=== PATIENT | female | born 1960 | race Hispanic/Latino ===

== ENCOUNTER 2019-05-24 18:21 | Emergency (ER) | payer OTHER ==
--- OUTSIDE RECORDS SUMMARY | 2019-05-24 18:24 | XMS REPORT ---
:1960 [facility] [address] [place] [address] Care Team Providers Name Role Phone Unavailable Unavailable Unavailable Payers Payer Name Policy Type Policy Number Effective Date Expiration Date Problems This patient has no known problems. Allergies, Adverse Reactions, Alerts Allergy Allergy Status Severity Reaction(s) Onset Inactive Treating Comments Name Type Date Date Clinician No Known DA Active U 2018-12 Allergies -09 00:00:0 0 Medications This patient has no known medications. Results Test Description Test Time Test Comments Text Results Atomic Results Result Comments BASIC METABOLIC PANEL 2018-12-24 08:57:00 Test Item Value Reference Range Comments SODIUM (test code=NA) 140 mmol/L 134-147 POTASSIUM (test code=K) 3.8 mmol/L 3.4-5.0 CHLORIDE (test code=CL) 107 mmol/L 100-108 CARBON DIOXIDE (test code=CO2) 26 mmol/L 21-32 ANION GAP (test code=GAP) 7.0 GAP calc 4.0-15.0 GLUCOSE (test code=GLU) 107 MG/DL 70-110 BLOOD UREA NITROGEN (test code=BUN) 12 MG/DL 7-18 GLOMERULAR FILTRATION RATE (test code=GFR) >=60 max estimate estGFR >60 CREATININE (test code=CREAT) 0.5 MG/DL 0.6-1.0 CALCIUM (test code=CA) 8.5 MG/DL 8.5-10.1 CBC W/AUTO [id number] 08:28:00 Test Item Value Reference Range Comments WHITE BLOOD CELL (test code=WBC) 5.0 K/mm3 3.5-11.0 RED BLOOD CELL (test code=RBC) 4.55 M/mm3 4.70-6.10 HEMOGLOBIN (test code=HGB) 13.1 G/DL 10.4-14.9 HEMATOCRIT (test code=HCT) 40.0 % 31.5-44.1 MEAN CELL VOLUME (test code=MCV) 87.9 Fl 84.5-98.6 MEAN CELL HGB (test code=MCH) 28.8 pg 27.0-34.2 MEAN CELL HGB CONCETRATION (test code=MCHC) 32.8 G/DL 31.5-34.0 RED CELL DISTRIBUTION WIDTH (test code=RDW) 14.0 SD 11.5-14.5 PLATELET COUNT (test code=PLT) 205.0 K/mm3 150-450 MEAN PLATELET VOLUME (test code=MPV) 9.70 fL 7.0-10.5 NEUTROPHIL % (test code=NT%) 47.8 % 40-76 LYMPHOCYTE % (test code=LY%) 37.9 % 20.5-51.1 MONOCYTE % (test code=MO%) 9.9 % 1.7-9.3 EOSINOPHIL % (test code=EO%) 4.0 % 0.0-6.0 BASOPHIL % (test code=BA%) 0.4 % 0.0-2.0 NEUTROPHIL # (test code=NT#) 2.37 K/mm3 1.8-7.6 LYMPHOCYTE # (test code=LY#) 1.9 K/mm3 0.6-3.2 MONOCYTE # (test code=MO#) 0.5 K/mm3 0.3-1.1 EOSINOPHIL # (test code=EO#) 0.2 K/mm3 0.0-0.4 BASOPHIL # (test code=BA#) 0.0 K/mm3 0.0-0.1 MANUAL DIFF REQUIRED (test code=MDIFF) NO DIFF/SCN CRITERIA - CT CHEST [id number] 15:30:00 Name: CAMILLE LOAIZA [facility] : 1960 Age/S: 58 / F [address] Unit #: [id number] Loc: [place] [address] Phys: Robin Rai MD Acct: [id number] Dis Date: Status : ADM IN PHONE #: [phone] Exam Date: 12/23/2018 1505 FAX #: Reason: PE protocol EXAMS: CPT: [id number] CT CHEST W/CONTRAST 67612 Site ID: [id number] CT angiogram of the chest with pulmonary embolism protocol CLINICAL HISTORY: Palpitations, chest pain COMPARISON STUDY: Chest x-ray of the same day TECHNIQUE: CT angiogram of the chest with IV contrast performed according to department pulmonary embolus protocol. Radiologist performed post-acquisition 3D processing was done at the workstation and reviewed. CT dose lowering technique utilized, with adjustment of MA/kV according to patient size and automated exposure control. FINDINGS: There is no evidence of pulmonary embolism. The thyroid gland and thoracic inlet are normal. The mediastinum is unremarkable, with no suspicious mass. The heart size is normal. The thoracic aorta and great vessels are normal in caliber. No pleural or pericardial effusion. No axillary, mediastinal or hilar lymphadenopathy. The tracheobronchial tree is clear. No pulmonary nodules, mass or consolidation. Bone windows demonstrate no evidence of fracture or malalignment. Limited images of the upper abdomen demonstrate a large hiatal hernia. IMPRESSION: 1. No evidence of acute pulmonary embolus or acute abnormality within the chest. 2. Large hiatal hernia. PAGE 1 Signed Report ( CONTINUED) Name: CAMILLE LOAIZA [facility] : Age/S: 58 / F [address] Unit #: [id number] Loc: [place] [address] Phys: Robin Rai MD Acct: [id number] Dis Date: Status: ADM IN PHONE #: [phone] Exam Date: 12/23/2018 1501 FAX #: Reason: PE protocol EXAMS: CPT: [id number] CT CHEST W/CONTRAST 25879 < Continued> at 1530 Reported and signed by: Suki Looney M.D. CC: Robin Rai MD Technologist: Oswaldo Payne RT(R)(CT) CTDI: DLP: Trnscb Date/Time: 12/23 (1530) t.[email or web address] Orig Print D/T: S: 12/23/2018 ( 9753) PAGE 2 Signed Report- XR CHEST 1 [id number] 15 :25:00 Name: CAMILLE LOAIZA [facility] : 1960 Age/S: 58 / F [address] Unit #: [id number] Loc: [place] [address] Phys: Robin Rai MD Acct: [id number] Dis Date: Status: ADM IN PHONE #: [phone] Exam Date: 12/23/2018 1416 FAX #: Reason: SOB EXAMS: CPT: [id number] XR CHEST 1 V 18974 Fluoro Time: DAP ( Gy m2): Air Kerma (mGy): Site ID: [id number] HISTORY: Shortnessof breath, chest pain FINDINGS: The lungs are clear and normally expanded. The heart and pulmonary vasculature is normal. Osseous structures are unremarkable. Large retrocardiac hiatal hernia is noted. IMPRESSION: Large retrocardiac hiatal hernia. No acute finding. at 1525 Reported and signed by: Suki Looney M.D. CC: Robin Rai MD PAGE 1 Signed Report Name: CAMILLE LOAIZA [facility] : 1960 Age/S: 58 / F [address] Unit #: [id number] Loc: [place] [address] Phys : Robin Rai MD Acct: [id number] Dis Date: Status: ADM IN PHONE #: [phone] Exam Date: 12/23/2018 1415 FAX #: Reason: SOB EXAMS: CPT: [id number] XR CHEST 1 V 27353 Fluoro Time: DAP (Gy m2): Air Kerma (mGy): <Continued&gt ; Technologist: Sonali Tinsley, RT(R)(MR); Roopa Sharma RT(R) Trnscb Date/Time: 12/23/2018 (8768) [email or web address] Orig Print D/T: S : 12/23/2018 (6322) PAGE 2 Signed [id number] 13:56:00 Test Item Value Reference Range Comments TROPONIN-I (test 0.097 NG/ML 0.000-0.045 Negative: </=0.045 Positive: code=TROPI) >/=0.046 Correlation with serial results, other cardiac markers, and clinical findings is necessary to determine the clinical significance of this result. Quantitative results using different methodologies should not be compared to one another as numerical results may varyby method. Completed by Nursing: NOGLYCOSYLATED HEMOGLOBIN [id number] 10:22:00 Test Item Value Reference Range Comments GLYCOSYLATED HEMOGLOBIN (HA1C) (test 6.3 % A1C 4.2-6.3 code=GLYHGB) ESTIMATED AVERAGE GLUCOSE (test code=EAG) 134 MG/DLest CBC W/AUTO [id number] 10:14:00 Test Item Value Reference Range Comments WHITE BLOOD CELL (test 7.8 K/mm3 3.5-11.0 code=WBC) RED BLOOD CELL (test code=RBC) 4.62 M/mm3 4.70-6.10 HEMOGLOBIN (test code=HGB) 13.3 G/DL 10.4-14.9 HEMATOCRIT (test code=HCT) 40.6 % 31.5-44.1 MEAN CELL VOLUME (test 87.9 Fl 84.5-98.6 code=MCV) MEAN CELL HGB (test code=MCH) 28.8 pg 27.0-34.2 MEAN CELL HGB CONCETRATION 32.8 G/DL 31.5-34.0 (test code=MCHC) RED CELL DISTRIBUTION WIDTH 14.2 SD 11.5-14.5 (test code=RDW) PLATELET COUNT (test code=PLT) 209.0 K/mm3 150-450 MEAN PLATELET VOLUME (test 9.90 fL 7.0-10.5 code=MPV) NEUTROPHIL % (test code=NT%) 52.9 % 40-76 LYMPHOCYTE % (test code=LY%) 35.6 % 20.5-51.1 MONOCYTE % (test code=MO%) 9.1 % 1.7-9.3 EOSINOPHIL % (test code=EO%) 2.1 % 0.0-6.0 BASOPHIL % (test code=BA%) 0.3 % 0.0-2.0 NEUTROPHIL # (test code=NT#) 4.12 K/mm3 1.8-7.6 LYMPHOCYTE # (test code=LY#) 2.8 K/mm3 0.6-3.2 MONOCYTE # (test code=MO#) 0.7 K/mm3 0.3-1.1 EOSINOPHIL # (test code=EO#) 0.2 K/mm3 0.0-0.4 BASOPHIL # (test code=BA#) 0.0 K/mm3 0.0-0.1 MANUAL DIFF REQUIRED (test NO DIFF/SCN CRITERIA SLIDE REVIEW CONSISTANT code=MDIFF) WITH AUTO DIFFERENTIAL. RBC [id number] 10:14:00 Test Item Value Reference Range Comments PLATELET ESTIMATE (test ADEQUATE THOUSAND ADEQUATE MANUAL ESTIMATE: 204,000 code=PLTEST) - 255,000 PLATELET MORPHOLOGY (test NORMAL code=PLTMORPH) CBC W/AUTO [id number] 10:13:00 Test Item Value Reference Range Comments WHITE BLOOD CELL (test 7.8 K/mm3 3.5-11.0 code=WBC) RED BLOOD CELL (test code=RBC) 4.62 M/mm3 4.70-6.10 HEMOGLOBIN (test code=HGB) 13.3 G/DL 10.4-14.9 HEMATOCRIT (test code=HCT) 40.6 % 31.5-44.1 MEAN CELL VOLUME (test 87.9 Fl 84.5-98.6 code=MCV) MEAN CELL HGB (test code=MCH) 28.8 pg 27.0-34.2 MEAN CELL HGB CONCETRATION 32.8 G/DL 31.5-34.0 (test code=MCHC) RED CELL DISTRIBUTION WIDTH 14.2 SD 11.5-14.5 (test code=RDW) PLATELET COUNT (test code=PLT) 209.0 K/mm3 150-450 MEAN PLATELET VOLUME (test 9.90 fL 7.0-10.5 code=MPV) NEUTROPHIL % (test code=NT%) 52.9 % 40-76 LYMPHOCYTE % (test code=LY%) 35.6 % 20.5-51.1 MONOCYTE % (test code=MO%) 9.1 % 1.7-9.3 EOSINOPHIL % (test code=EO%) 2.1 % 0.0-6.0 BASOPHIL % (test code=BA%) 0.3 % 0.0-2.0 NEUTROPHIL # (test code=NT#) 4.12 K/mm3 1.8-7.6 LYMPHOCYTE # (test code=LY#) 2.8 K/mm3 0.6-3.2 MONOCYTE # (test code=MO#) 0.7 K/mm3 0.3-1.1 EOSINOPHIL # (test code=EO#) 0.2 K/mm3 0.0-0.4 BASOPHIL # (test code=BA#) 0.0 K/mm3 0.0-0.1 MANUAL DIFF REQUIRED (test NO DIFF/SCN CRITERIA SLIDE REVIEW CONSISTANT code=MDIFF) WITH AUTO DIFFERENTIAL. CBC W/AUTO [id number] 10:13:00 Test Item Value Reference Range Comments WHITE BLOOD CELL (test 7.8 K/mm3 3.5-11.0 code=WBC) RED BLOOD CELL (test code=RBC) 4.62 M/mm3 4.70-6.10 HEMOGLOBIN (test code=HGB) 13.3 G/DL 10.4-14.9 HEMATOCRIT (test code=HCT) 40.6 % 31.5-44.1 MEAN CELL VOLUME (test 87.9 Fl 84.5-98.6 code=MCV) MEAN CELL HGB (test code=MCH) 28.8 pg 27.0-34.2 MEAN CELL HGB CONCETRATION 32.8 G/DL 31.5-34.0 (test code=MCHC) RED CELL DISTRIBUTION WIDTH 14.2 SD 11.5-14.5 (test code=RDW) PLATELET COUNT (test code=PLT) 209.0 K/mm3 150-450 MEAN PLATELET VOLUME (test 9.90 fL 7.0-10.5 code=MPV) NEUTROPHIL % (test code=NT%) 52.9 % 40-76 LYMPHOCYTE % (test code=LY%) 35.6 % 20.5-51.1 MONOCYTE % (test code=MO%) 9.1 % 1.7-9.3 EOSINOPHIL % (test code=EO%) 2.1 % 0.0-6.0 BASOPHIL % (test code=BA%) 0.3 % 0.0-2.0 NEUTROPHIL # (test code=NT#) 4.12 K/mm3 1.8-7.6 LYMPHOCYTE # (test code=LY#) 2.8 K/mm3 0.6-3.2 MONOCYTE # (test code=MO#) 0.7 K/mm3 0.3-1.1 EOSINOPHIL # (test code=EO#) 0.2 K/mm3 0.0-0.4 BASOPHIL # (test code=BA#) 0.0 K/mm3 0.0-0.1 MANUAL DIFF REQUIRED (test NO DIFF/SCN CRITERIA SLIDE REVIEW CONSISTANT code=MDIFF) WITH AUTO DIFFERENTIAL. PROTHROMBIN [id number] 09:32:00 Test Item Value Reference Range Comments PT PATIENT (test code=PTP) 12.9 SECONDS 9.3-12.9 INTERNATIONAL NORMAL RATIO (test code=INR) 1.12 INR Unit 0.8-1.2 [id number] 09:32:00 Test Item Value Reference Range Comments D-DIMER (test code=DDIMER) 1399 ng/mLFEU 215-500 COMPREHENSIVE METABOLIC [id number] 09:31:00 Test Item Value Reference Range Comments SODIUM (test code=NA) 142 mmol/L 134-147 POTASSIUM (test code=K) 4.0 mmol/L 3.4-5.0 CHLORIDE (test code=CL) 109 mmol/L 100-108 CARBON DIOXIDE (test code=CO2) 26 mmol/L 21-32 ANION GAP (test code=GAP) 7.0 GAP calc 4.0-15.0 GLUCOSE (test code=GLU) 111 MG/DL 70-110 BLOOD UREA NITROGEN (test code=BUN) 17 MG/DL 7-18 GLOMERULAR FILTRATION RATE (test >=60 max estimate estGFR >60 code=GFR) CREATININE (test code=CREAT) 0.6 MG/DL 0.6-1.0 TOTAL PROTEIN (test code=PROT) 7.2 G/DL 6.4-8.2 ALBUMIN (test code=ALB) 3.1 G/DL 3.4-5.0 GLOBULIN (test code=GLOB) 4.1 GM/dL ALBUMIN/GLOBULIN RATIO (test 0.8 RATIO 1.2-2.2 code=A/G) CALCIUM (test code=CA) 8.7 MG/DL 8.5-10.1 BILIRUBIN TOTAL (test code=BILT) 0.30 MG/DL 0.2-1.2 SGOT/AST (test code=AST) 76 Unit/L 15-37 SGPT/ALT (test code=ALT) 123 Unit/L 12-78 ALKALINE PHOSPHATASE TOTAL (test 80 Unit/L 45-117 code=ALKP) LIPID PROFILE (CORONARY RISK)2018-12-23 09:31:00 Test Item Value Reference Range Comments TRIGLYCERIDES (test code=TRIG) 127 MG/DL 0-150 CHOLESTEROL (test code=CHOL) 201 MG/DL 133-200 CHOLESTEROL/HDL RATIO (test code=CHOLHDL) 3.59 RATIO >0 HDL CHOLESTEROL (test code=HDL) 56 MG/DL 40-59 NON-HDL CHOLESTEROL (test code=NHDL) 145 mg/dL <130 LIPOPROTEIN LDL (test code=LDL) 129 MG/DL 0-129 LDL/HDL (test code=LDL/HDL) 2.30 Ratio 1.48-3.22 Avg [id number] 09:31:00 Test Item Value Reference Range Comments PHOSPHOROUS (test code=PHOS) 3.7 MG/DL 2.5-4.9 RULE OUT AR [id number] 09:31:00 Test Item Value Reference Range Comments CREATINE KINASE (CK) (test 68 Unit/L 26-192 code=CK) TROPONIN-I (test 0.118 NG/ML 0.000-0.045 Negative: </=0.045 Positive: code=TROPI) >/=0.046 Correlation with serial results, other cardiac markers, and clinical findings is necessary to determine the clinical significance of this result. Quantitative results using different methodologies should not be compared to one another as numerical results may varyby method. [id number] 09:31:00 Test Item Value Reference Range Comments MAGNESIUM (test code=MAG) 1.9 MG/DL 1.8-2.4 THYROID STIMULATING [id number] 09:31:00 Test Item Value Reference Range Comments THYROID STIMULATING HORMONE (test code=TSH) 1.400 mcIU/ML 0.340-4.820 PROTHROMBIN [id number] 09:20:00 Test Item Value Reference Range Comments PT PATIENT (test code=PTP) 12.9 SECONDS 9.3-12.9 INTERNATIONAL NORMAL RATIO (test code=INR) 1.12 INR Unit 0.8-1.2 [id number] 09:20:00 Test Item Value Reference Range Comments D-DIMER (test code=DDIMER) ng/mLFEU 215-500 CBC W/AUTO [id number] 09:19:00 Test Item Value Reference Range Comments WHITE BLOOD CELL (test code=WBC) 7.8 K/mm3 3.5-11.0 RED BLOOD CELL (test code=RBC) 4.62 M/mm3 4.70-6.10 HEMOGLOBIN (test code=HGB) 13.3 G/DL 10.4-14.9 HEMATOCRIT (test code=HCT) 40.6 % 31.5-44.1 MEAN CELL VOLUME (test code=MCV) 87.9 Fl 84.5-98.6 MEAN CELL HGB (test code=MCH) 28.8 pg 27.0-34.2 MEAN CELL HGB CONCETRATION (test code=MCHC) 32.8 G/DL 31.5-34.0 RED CELL DISTRIBUTION WIDTH (test code=RDW) 14.2 SD 11.5-14.5 PLATELET COUNT (test code=PLT) 209.0 K/mm3 150-450 MEAN PLATELET VOLUME (test code=MPV) 9.90 fL 7.0-10.5 NEUTROPHIL % (test code=NT%) % 40-76 LYMPHOCYTE % (test code=LY%) % 20.5-51.1 MONOCYTE % (test code=MO%) % 1.7-9.3 EOSINOPHIL % (test code=EO%) % 0.0-6.0 BASOPHIL % (test code=BA%) % 0.0-2.0 NEUTROPHIL # (test code=NT#) K/mm3 1.8-7.6 LYMPHOCYTE # (test code=LY#) K/mm3 0.6-3.2 MONOCYTE # (test code=MO#) K/mm3 0.3-1.1 EOSINOPHIL # (test code=EO#) K/mm3 0.0-0.4 BASOPHIL # (test code=BA#) K/mm3 0.0-0.1 MANUAL DIFF REQUIRED (test code=MDIFF) DIFF/SCN CRITERIA COMPREHENSIVE METABOLIC [id number] 09:11:00 Test Item Value Reference Range Comments SODIUM (test code=NA) 142 mmol/L 134-147 POTASSIUM (test code=K) 4.0 mmol/L 3.4-5.0 CHLORIDE (test code=CL) 109 mmol/L 100-108 CARBON DIOXIDE (test code=CO2) 26 mmol/L 21-32 ANION GAP (test code=GAP) 7.0 GAP calc 4.0-15.0 GLUCOSE (test code=GLU) 111 MG/DL 70-110 BLOOD UREA NITROGEN (test code=BUN) 17 MG/DL 7-18 GLOMERULAR FILTRATION RATE (test code=GFR) estGFR >60 CREATININE (test code=CREAT) MG/DL 0.6-1.0 TOTAL PROTEIN (test code=PROT) G/DL 6.4-8.2 ALBUMIN (test code=ALB) G/DL 3.4-5.0 GLOBULIN (test code=GLOB) GM/dL ALBUMIN/GLOBULIN RATIO (test code=A/G) RATIO 1.2-2.2 CALCIUM (test code=CA) 8.7 MG/DL 8.5-10.1 BILIRUBIN TOTAL (test code=BILT) MG/DL 0.2-1.2 SGOT/AST (test code=AST) Unit/L 15-37 SGPT/ALT (test code=ALT) Unit/L 12-78 ALKALINE PHOSPHATASE TOTAL (test code=ALKP) Unit/L 45-117 LIPID PROFILE (CORONARY RISK)2018-12-23 09:11:00 Test Item Value Reference Range Comments TRIGLYCERIDES (test code=TRIG) MG/DL 0-150 CHOLESTEROL (test code=CHOL) MG/DL 133-200 CHOLESTEROL/HDL RATIO (test code=CHOLHDL) RATIO >0 HDL CHOLESTEROL (test code=HDL) MG/DL 40-59 NON-HDL CHOLESTEROL (test code=NHDL) mg/dL <130 LIPOPROTEIN LDL (test code=LDL) MG/DL 0-129 LDL/HDL (test code=LDL/HDL) Ratio 1.48-3.22 Avg [id number] 09:11:00 Test Item Value Reference Range Comments PHOSPHOROUS (test code=PHOS) MG/DL 2.5-4.9 RULE OUT AR [id number] 09:11:00 Test Item Value Reference Range Comments CREATINE KINASE (CK) (test code=CK) Unit/L 26-192 TROPONIN-I (test code=TROPI) NG/ML 0.000-0.045 [id number] 09:11:00 Test Item Value Reference Range Comments MAGNESIUM (test code=MAG) MG/DL 1.8-2.4 THYROID STIMULATING [id number] 09:11:00 Test Item Value Reference Range Comments THYROID STIMULATING HORMONE (test code=TSH) mcIU/ML 0.340-4.820 CPK-MB [id number] 09:01:00 Test Item Value Reference Range Comments CREATINE KINASE (CK) (test code=CK) 64 Unit/L 26-192 CKMB (test code=CKMBT) 1.5 NG/ML 0.0-4.9 RELATIVE % INDEX (test code=REL%) 2.3 % 0.0-2.5 [id number] 08:04:00 Test Item Value Reference Range Comments TROPONIN-I (test 0.124 NG/ML 0.000-0.045 Negative: </=0.045 Positive: code=TROPI) >/=0.046 Correlation with serial results, other cardiac markers, and clinical findings is necessary to determine the clinical significance of this result. Quantitative results using different methodologies should not be compared to one another as numerical results may varyby method. Completed by Nursing: NO
[2019-05-24 19:09] LABS: Absolute Lymphocytes (CBC) 2.1 K/uL (0.7-4.9); Basophils % 0.9 % (0-1.3); Hematocrit 42.1 % (36.0-45.0); Lymphocytes % 33.8 % (15.3-44.8); MPV 8.6 fL (7.6-11.3); RBC Red Blood Cell Count 4.94 M/uL (3.86-4.86)
[2019-05-24 19:10] LABS: Protime INR 1.05
[2019-05-24 19:58] LABS: ALT/SGPT 185 U/L (12-78); AST/SGOT 117 U/L (15-37); Albumin 3.2 g/dL (3.4-5.0); Alkaline Phosphatase 84 U/L (45-117); BUN Blood Urea Nitrogen 17 mg/dL (7-18); Bicarbonate 26 mmol/L (21-32); Bilirubin Direct 0.2 mg/dL (0-0.2); Bilirubin Total 0.3 mg/dL (0.2-1.0); Glucose Level 123 mg/dL (74-106); NT PRO-BNP 111 pg/mL (<125); Potassium 3.8 mmol/L (3.5-5.1); Protein, Total 7.1 g/dL (6.4-8.2); Sodium Level 142 mmol/L (136-145); Troponin (Emerg Dept Use Only) < 0.02 ng/mL (0.0-0.045)
--- NOTE | 2019-05-24 20:35 | EDPHYS ---
Physician Documentation [facility] Name: Temitope Deleon Age: 58 yrs Sex: Female : 1960 Arrival Date: 05/24/2019 Time: 18:24 Bed 17 Private MD: ED Physician Tom Fuller HPI: 05/25 00:00 This 58 yrs old Female presents to ER via Ambulatory with complaints of Chest tw4 Pain, Breathing Difficulty. 00:00 The patient presents with a history of heart racing. Context: The symptoms occur at tw4 rest. Onset: The symptoms/episode began/occurred today. Duration: The patient or guardian reports a single episode. Modifying factors: The symptoms are aggravated by nothing. The symptoms are alleviated by nothing. Severity of symptoms: At their worst the symptoms were mild in the emergency department the symptoms are unchanged. The patient has not experienced similar symptoms in the past. Historical: - Allergies: 05/24 18:48 No Known Allergies; sg - PSHx: 18:48 Hysterectomy; Cholecystectomy; sg - Immunization history:: Adult Immunizations up to date. - Social history:: Smoking status: Patient/guardian denies using tobacco, never smoked. - Ebola Screening: : No symptoms or risks identified at this time. ROS: 05/25 00:00 Constitutional: Negative for fever, chills, and weight loss, Eyes: Negative for injury, tw4 pain, redness, and discharge, ENT: Negative for injury, pain, and discharge, Respiratory: Negative for shortness of breath, cough, wheezing, and pleuritic chest pain, Abdomen/GI: Negative for abdominal pain, nausea, vomiting, diarrhea, and constipation, Back: Negative for injury and pain, MS/Extremity: Negative for injury and deformity, Skin: Negative for injury, rash, and discoloration, Neuro: Negative for headache, weakness, numbness, tingling, and seizure. Cardiovascular: Positive for palpitations, Negative for chest pain, edema, orthopnea, paroxysmal nocturnal dyspnea. Exam: 00:00 Constitutional: This is a well developed, well nourished patient who is awake, alert, tw4 and in no acute distress. Head/Face: Normocephalic, atraumatic. Chest/axilla: Normal chest wall appearance and motion. Nontender with no deformity. No lesions are appreciated. Cardiovascular: Regular rate and rhythm with a normal S1 and S2. No gallops, murmurs, or rubs. Normal PMI, no JVD. No pulse deficits. Respiratory: Lungs have equal breath sounds bilaterally, clear to auscultation and percussion. No rales, rhonchi or wheezes noted. No increased work of breathing, no retractions or nasal flaring. Abdomen/GI: Soft, non-tender, with normal bowel sounds. No distension or tympany. No guarding or rebound. No evidence of tenderness throughout. Back: No spinal tenderness. No costovertebral tenderness. Full range of motion. MS/ Extremity: Pulses equal, no cyanosis. Neurovascular intact. Full, normal range of motion. Neuro: Awake and alert, GCS 15, oriented to person, place, time, and situation. Cranial nerves II-XII grossly intact. Motor strength 5/5 in all extremities. Sensory grossly intact. Cerebellar exam normal. Normal gait. Vital Signs: 05/24 18:46 BP 112 / 80; Pulse 78; Resp 20; Temp 98.2; Pulse Ox 98% on R/A; sg 19:20 BP 121 / 88; Pulse 89; Resp 17 S; Temp 97.5(O); Pulse Ox 98% on R/A; Pain 0/10; cc3 20:45 BP 118 / 79; Pulse 85; Resp 17 S; Pulse Ox 98% on R/A; Pain 0/10; cc3 MDM: 19:21 Patient medically screened. tw4 05/25 00:00 Differential diagnosis: arrythmia, dehydration, stress disorder. Data reviewed: vital tw4 signs, nurses notes. Data interpreted: Pulse oximetry: Interpretation: normal. Counseling: I had a detailed discussion with the patient and/or guardian regarding: the historical points, exam findings, and any diagnostic results supporting the discharge/admit diagnosis. Special discussion: I discussed with the patient/guardian in detail that at this point there is no indication for admission to the hospital. It is understood, however, that if the symptoms persist or worsen the patient needs to return immediately for re-evaluation. 05/24 18:53 Order name: Basic Metabolic Panel; Complete Time: 20:27 em 05/24 20:27 Interpretation: Normal except: CL 109; GFR 87; GLUC 123. tw4 05/24 18:53 Order name: CBC with Diff; Complete Time: 20:27 05/24 20:29 Interpretation: Normal except: RBC 4.94. tw4 05/24 18:53 Order name: LFT's; Complete Time: 20:27 05/24 20:29 Interpretation: Normal except: AST 117; ALT 185; ALB 3.2; GLOB 3.9; A/G 0.8. 05/24 18:53 Order name: Magnesium; Complete Time: 20:27 05/24 20:29 Interpretation: Within normal limits: MG 2.0. 05/24 18:53 Order name: NT PRO-BNP; Complete Time: 20:27 05/24 20:30 Interpretation: Within normal limits: NT PRO-BNP 111. 05/24 18:53 Order name: PT-INR; Complete Time: 20:27 05/24 20:30 Interpretation: Within normal limits: PT 12.4. 05/24 18:53 Order name: Troponin (emerg Dept Use Only); Complete Time: 20:27 05/24 20:32 Interpretation: Within normal limits: TROPED < 0.02. 05/24 18:53 Order name: XRAY Chest (1 view) 05/24 18:53 Order name: EKG; Complete Time: 18:55 05/24 18:53 Order name: Cardiac monitoring; Complete Time: 19:39 05/24 18:53 Order name: EKG - Nurse/Tech; Complete Time: 19:30 05/24 18:53 Order name: IV Saline Lock; Complete Time: 19:04 05/24 18:53 Order name: Labs collected and sent; Complete Time: 19:04 05/24 18:53 Order name: O2 Per Protocol; Complete Time: 19:04 05/24 18:53 Order name: O2 Sat Monitoring; Complete Time: 19:39 05/24 19:18 Order name: Labs - recollect needed: green top; Complete Time: 19:39 iw EC:00 Rate is 98 beats/min. Rhythm is regular. QRS [place] is Normal. IL interval is normal. QRS tw4 interval is normal. QT interval is normal. No Q waves. T waves are Inverted in leads III, aVF. No ST changes noted. Clinical impression: NSR w/ Non-specific ST/T Changes. Interpreted by me. Reviewed by me. Administered Medications: No medications were administered Disposition: 05/24/19 20:33 Discharged to Home. Impression: Palpitations. - Condition is Stable. - Discharge Instructions: Holter Monitoring, Palpitations. - Medication Reconciliation Form, Thank You Letter, Antibiotic Education, Prescription Opioid Use form. - Follow up: Private Physician; When: Upon discharge from the Emergency Department; Reason: Recheck today's complaints, Continuance of care. Follow up: Jesse Lawson MD; When: Upon discharge from the Emergency Department; Reason: If symptoms return, Recheck today's complaints, Continuance of care. Follow up: Deon Echevarria MD; When: Upon discharge from the Emergency Department; Reason: If symptoms return, Recheck today's complaints, Continuance of care. - Problem is new. - Symptoms have improved. Signatures: Dispatcher [employer] Phu Wood RN RN sg Denton Shine, ORCHID TRANSPLANTER ORCHID TRANSPLANTER em Nori Mc RN RN iw Wadley, Terrence, MD MD tw4 Cayla Bryan cc3 Corrections: (The following items were deleted from the chart) 05/24 20:34 20:33 05/24/2019 20:33 Discharged to Home. Impression: Palpitations. Condition is tw4 Stable. Forms are Medication Reconciliation Form, Thank You Letter, Antibiotic Education, Prescription Opioid Use. Follow up: Private Physician; When: Upon discharge from the Emergency Department; Reason: Recheck today's complaints, Continuance of care. Problem is new. Symptoms have improved. tw4 21:00 20:34 05/24/2019 20:33 Discharged to Home. Impression: Palpitations. Condition is cc3 Stable. Discharge Instructions: Holter Monitoring, Palpitations. Forms are Medication Reconciliation Form, Thank You Letter, Antibiotic Education, Prescription Opioid Use. Follow up: Private Physician; When: Upon discharge from the Emergency Department; Reason: Recheck today's complaints, Continuance of care. Follow up: Jesse Lawson; When: Upon discharge from the Emergency Department; Reason: If symptoms return, Recheck today's complaints, Continuance of care. Follow up: Deon Echevarria; When: Upon discharge from the Emergency Department; Reason: If symptoms return, Recheck today's complaints, Continuance of care. Problem is new. Symptoms have improved. tw4
--- NOTE | 2019-05-24 20:35 | ER ---
Nurse's Notes [facility] Name: Temitope Deleon Age: 58 yrs Sex: Female : 1960 Arrival Date: 05/24/2019 Time: 18:24 Bed 17 Private MD: Diagnosis: Palpitations Presentation: 05/24 18:45 Presenting complaint: Patient states: Has chest palpitations and pain today around sg 1800, reports having shortness of breath as well. Transition of care: patient was not received from another setting of care. Onset of symptoms. Risk Assessment: Do you want to hurt yourself or someone else? Patient reports no desire to harm self or others. Initial Sepsis Screen: Does the patient meet any 2 criteria? No. Patient's initial sepsis screen is negative. Does the patient have a suspected source of infection? No. Patient's initial sepsis screen is negative. Care prior to arrival: None. 18:45 Method Of Arrival: Ambulatory sg 18:45 Acuity: BETTINA 3 sg Triage Assessment: 19:15 General: Appears in no apparent distress. comfortable, Behavior is calm, cooperative, cc3 appropriate for age. Pain: Denies pain. EENT: No signs and/or symptoms were reported regarding the EENT system. Neuro: Level of Consciousness is awake, alert, obeys commands, Oriented to person, place, time, situation, Appropriate for age. Cardiovascular: Denies chest pain, Heart tones S1 S2 present Capillary refill < 3 seconds in bilateral fingers Patient's skin is warm and dry. Respiratory: Airway is patent Respiratory effort is even, unlabored, Respiratory pattern is regular, symmetrical, Breath sounds are clear bilaterally. GI: Abdomen is round non-distended, Bowel sounds present X 4 quads. Abd is soft and non tender X 4 quads. : No signs and/or symptoms were reported regarding the genitourinary system. Derm: Skin is intact, is healthy with good turgor, Skin is pink, warm \T\ dry. normal. Musculoskeletal: Circulation, motion, and sensation intact. Range of motion: intact in all extremities. Historical: - Allergies: 18:48 No Known Allergies; sg - PSHx: 18:48 Hysterectomy; Cholecystectomy; sg - Immunization history:: Adult Immunizations up to date. - Social history:: Smoking status: Patient/guardian denies using tobacco, never smoked. - Ebola Screening: : No symptoms or risks identified at this time. Screenin:15 Abuse screen: Denies threats or abuse. Denies injuries from another. Nutritional cc3 screening: No deficits noted. Tuberculosis screening: No symptoms or risk factors identified. Fall Risk Ambulatory Aid- None/Bed Rest/Nurse Assist (0 pts). Gait- Normal/Bed Rest/Wheelchair (0 pts) Mental Status- Oriented to own ability (0 pts). Assessment: 18:51 Reassessment: I agree with the assessment made by CALLY Chawla. sg 19:15 Pain: Pain does not radiate. currently patient denies chest pain Pain began 1 hour ago. cc3 20:55 Reassessment: Patient appears in no apparent distress at this time. Patient and/or cc3 family updated on plan of care and expected duration. Pain level reassessed. Patient is alert, oriented x 3, equal unlabored respirations, skin warm/dry/pink. Dr. Fuller discharged the patient home, no prescription given. IV cannula removed and patient left ER vitally stable and ambulatory with her family. NO valuables left in the patient's room. Patient denies pain at this time. Patient states feeling better. Patient states symptoms have improved. Vital Signs: 18:46 BP 112 / 80; Pulse 78; Resp 20; Temp 98.2; Pulse Ox 98% on R/A; sg 19:20 BP 121 / 88; Pulse 89; Resp 17 S; Temp 97.5(O); Pulse Ox 98% on R/A; Pain 0/10; cc3 20:45 BP 118 / 79; Pulse 85; Resp 17 S; Pulse Ox 98% on R/A; Pain 0/10; cc3 ED Course: 18:24 Patient arrived in ED. mr 18:40 Denton Shine LVN is Primary Nurse. em 18:40 EKG done, by ED staff. sg 18:46 Arm band placed on. sg 18:49 Triage completed. sg 18:49 Patient has correct armband on for positive identification. Bed in low position. Call sg light in reach. Side rails up X2. potline monitor on. Pulse ox on. NIBP on. Warm blanket given. Head of bed elevated. 19:03 Inserted saline lock: 22 gauge in right forearm, using aseptic technique. Blood jb5 collected. 19:03 Basic Metabolic Panel Sent. jb5 19:03 CBC with Diff Sent. jb5 19:03 LFT's Sent. jb5 19:03 Magnesium Sent. jb5 19:04 NT PRO-BNP Sent. jb5 19:04 PT-INR Sent. jb5 19:04 Troponin (emerg Dept Use Only) Sent. jb5 19:15 Patient maintains SpO2 saturation greater than 95% on room air. cc3 19:21 Tom Fuller MD is Attending Physician. tw4 20:27 XRAY Chest (1 view) In Process Unspecified. EDMS 20:34 Jesse Lawson MD is Referral Physician. tw4 20:34 Deon Echevarria MD is Referral Physician. tw4 20:55 No provider procedures requiring assistance completed. IV discontinued, intact, cc3 bleeding controlled, No redness/swelling at site. Pressure dressing applied. Administered Medications: No medications were administered Outcome: 20:33 Discharge ordered by MD. tw4 20:55 Discharged to home ambulatory, with family. cc3 20:55 Condition: stable 20:55 Discharge instructions given to patient, family, Instructed on discharge instructions, follow up and referral plans. Demonstrated understanding of instructions, follow-up care. 21:00 Patient left the ED. cc3 Signatures: Dispatcher [employer] EDPhu Flores, Alicja Bender RN, Edgar, AUTOMATIC HEAD SAWYER AUTOMATIC HEAD SAWYER Lata Nichole jb5 Tom Fuller MD MD tw4 Cayla Bryan cc3
--- NOTE | 2019-05-24 20:45 | RAD REPORT ---
EXAM DESCRIPTION: RAD - Chest Single View - 05/24/2019 8:26 pm CLINICAL HISTORY: Chest pain COMPARISON: January 2014 TECHNIQUE: AP portable chest image was obtained 1906 hours . FINDINGS: No focal lung parenchymal process. Interstitial pattern is not substantially different com parison. Retrocardiac left base is limited. Retrocardiac mass density corresponds to a known hiatal h ernia. Heart and vasculature are normal. No measurable pleural effusion and no pneumothorax. No acute bony abnormality seen. No acute aortic findings suspected. IMPRESSION: No acute cardiopulmonary process. No significant change from comparison.
[2019-05-24 23:53] VITALS: BP 112/80; TEMP 98.2; O2SAT 98
--- NOTE | 2019-05-25 07:38 | EKG ---
Test Date: 2019-05-24 Test Time: 18:41:28 Dentist/Owner: PHYLLIS MEASUREMENT RESULTS: Intervals: Rate: 98 IL: 152 QRSD: 82 QT: 362 QTc: 462 [place]: P: 37 IL: 152 QRS: -12 T: -2 INTERPRETIVE STATEMENTS: Normal sinus rhythm Voltage criteria for left ventricular hypertrophy Inferior infarct, age undetermined Abnormal ECG Compared to ECG 01/24/2014 07:22:20 Left ventricular hypertrophy now present Myocardial infarct finding now present Sinus bradycardia no longer present Electronically Signed On 05-25-19 07:37:57 CHIEF SCIENTIFIC OFFICER by Deon Echevarria
== END 2019-05-24 21:00 | disposition home or self-care (01) ==
LOC: ER 18:21
DX: R00.2 Palpitations (principal)
CPT/HCPCS: 36415; 71045; 80048; 80076; 83735; 83880; 84484; 85025; 85610; 93005; 99285

== ENCOUNTER 2022-05-16 16:06 | Emergency (ER) | payer OTHER ==
--- OUTSIDE RECORDS SUMMARY | 2022-05-16 16:09 | XMS REPORT | Continuity of Care Document ---
:1960 Author Organization [facility] t Address [address] [place] [address] Care Team Providers Name Role Phone Asked, No Pcp Primary Care Physician Unavailable Robin Rai Attending Clinician Unavailable Robin Rai Admitting Clinician Unavailable Payers Payer Name Policy Type Policy Number Effective Date Expiration Date S ource Problems Condition Condition Condition Status Onset Resolution Last Treating Co mments Source Name Details Category Date Date Treatment Clinician Date Ischemic Ischemic Disease Active Metho di chest pain chest pain 1-11 st 00:00: Hospita 00 l 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 1-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 infarction 00:00: Ho spita without ST without ST 00 l elevation elevation Allergies, Adverse Reactions, Alerts Allergy Allergy Status Severity Reaction(s) Onset Inactive Treating Comm ents Source Name Type Date Date Clinician No Known DA Active [facility] Allergie 12-23 Clear s 00:00: Fernandez 00 [facility] DEXAMETH DRUG Active Hives Univers ASONE 4-21 ity of SODIUM 00:00: [place] [facility] 00 [facility] Family History Family Member Diagnosis Comments Start Date Stop Date Source Natural father Diabetes [facility] Natural father Rheum arthritis [facility] Natural mother Diabetes [facility] Social History Social Habit Start Date Stop Date Quantity Comments Source Alcohol intake 2016-06-27 2016-06-27 Current [facility] 00:00:00 00:00:00 non-drinker of Hospital alcohol (finding) Sex Ass[birth year] At [birth year] [facility] 00:00:00 00:00:00 Hospital Smoking Status Start Date Stop Date Source Never smoked tobacco [facility] ospital Medications Ordered Filled Start Stop Current Ordering Indication Dosage Frequency Signature Comments Components Source Medication Medication Date Date Medication? Clinician (SIG) Name Name citalopram Yes 20mg QD Take 20 mg M ethodi (CeleXA) 20 1-[address] MG tablet 19:38: daily. Hospit a 08 l LORAZepam Yes .5mg QD Take 0.5 Meth jayme (ATIVAN) 1-[address] 0.5 MG 19:38: mouth Hospita tablet 08 nightly as l needed for anxiety. timolol Yes 1[drp] QD Administer Me thodi (TIMOPTIC) 1-[address] 0.5 % 19:38: both eyes Hospita ophthalmic 08 daily. l solution latanoprost 2015-06 Yes 1[drp] QD Administer Methodi (XALATAN) 2-[address] 0.005 % 00:00: both eyes Hospi ta ophthalmic 00 nightly. l solution pantoprazol Yes 40mg QD Take 40 mg Methodi e 4-[address] (PROTONIX) 00:00: daily. Hospi ta 40 MG EC 00 l tablet aspirin Yes 81mg QD Take 81 mg Meth jayme (ECOTRIN) 4-[address] 81 MG 00:00: daily. Hospita enteric 00 l coated tablet Procedures This patient has no known procedures. Plan of Care Planned Activity Planned Date Details Comments Source Future Scheduled 2022-04-20 HEPATITIS B VACCINES Met [facility] Test 17:43:32 (1 of 3 - 3-dose series) [code = HEPATITIS B VACCINES (1 of 3 - 3-dose series)] Future Scheduled 2022-04-20 COVID-19 VACCINE (#1) [facility] Test 17:43:32 [code = COVID-19 VACCINE (#1)] Future Scheduled 2022-04-20 Screening for [facility] Test 17:43:32 malignant neoplasm of cervix (procedure) [code = 914777364] Future Scheduled 2022-04-20 BREAST CANCER [facility] Test 17:43:32 SCREENING [code = BREAST CANCER SCREENING] Future Scheduled 2022-04-[address] [facility] Test 17:43:32 [code = COLONOSCOPY SCREENING] Future Scheduled 2022-04-20 SHINGLES VACCINES ([facility] Test 17:43:32 of 2) [code = SHINGLES VACCINES (1 of 2)] Future Scheduled 2022-04-20 INFLUENZA VACCINE [facility] Test 17:43:32 [code = INFLUENZA VACCINE] Encounters Start End Encounter Admission Attending Care Care Encounter Source Date/Time Date/Time Type Type Clinicians Facility Department ID 2020-06-22 2020-06-22 Outpatient R [facility] [id number] [facility] 15:00:00 15:00:00 [id number] [facility] 2018-12-23 2018-12-24 Inpatient ALEX Kruse INTE.02 [id number] [facility] 04:47:00 12:25:00 [facility] [address] [facility] Results Test Description Test Time Test Comments Results Result Sour e Comments SCR MAMM 2021-11-15 BILATERAL JERI 13:10:04 CAD DIGITAL Name: Temitope : 1960 Sex: F - SCR MAMM BILATERAL JERI CAD DIGITALBILATERAL DIGITAL SCREENING MAMMOGRAM 3D/2D WITH CAD: 11/10/2021LINICAL: Asymptomatic. Digital breast tomosynthesis was performed in addition to routine CC and MLO views. Current mammographic images were evaluated by [employer] CAD (computer-aided detection) software. No prior exams were available for comparison. The tissue of both breasts is heterogeneously dense. This may lower the sensitivity of mammography. There are benign appearing calcifications in both breasts. There also are benign appearing masses in both breasts. No suspicious mass, architectural distortion, malignant type calcification, or lymph node abnormality detected. IMPRESSION: BENIGNThere is no mammographic evidence of malignancy. Resume annual screening mammography in one year. Andrea Berger M.D. et/penrad:11/15/2021 13:10:04 [employer] Operator: Liz Chow MM, [facility] [employer] Mammographyletter sent: BIRADS 1-2 Normal Mammogram BI-RADS: 2 Benign HEMOGLOBIN A1c 2021-09-12 04:34:58 Test Item Value Reference Range Interpretation Comme nts HEMOGLOBIN A1c (test code = 6.6 % 4.2-5.6 H [employer] 65442) GUIDELINES FOR HGB A1C: PREDIABETES/INC REASED RISK . . . . . . . 5.7-6.4% DIAGNO SIS OF DIABETES . . . . . . . . . >=6.5% WITH CONFIRMATION OR APPROPRIATE SYM PTOMS NOTE: ASSAY MAY BE AFFECTED BY HEM OGLOBINOPATHIES (SICKLE CELL ANEMIA, S- C DISEASE, OTHERS) OR ARTIFICIALLY LO WERED BY DECREASED RED CELL SURVIVAL ( HEMOLYTIC ANEMIAS, BLOOD LOSS, ETC.). CO NSIDER ALTERNATE TESTING OR LABORATORY C ONSULTATION. COMPREHENSIVE METABOLIC [id number] 03:34:12 Test Item Value Reference Range Interpretation Comments GLUCOSE (test code = 132 MG/DL 70-99 H 2216) BUN (test code = 13 MG/DL 8-23 2207) CREATININE (test 0.50 MG/DL 0.60-1.30 L code = 2214) eGFR (2020 CKD-EPI) 105 >60 (test code = 30436) ML/MIN/1.73 CALC BUN/CREAT (test 26 RATIO 6-28 code = 2235) SODIUM (test code = 141 MEQ/L 209-217 6084) POTASSIUM (test code 4.5 MEQ/L 3.5-5.4 = 8) CHLORIDE (test code 103 MEQ/L 95-107 = 221) CARBON DIOXIDE (test 23 MEQ/L 19-31 code = 2206) CALCIUM (test code = 9.4 MG/DL 8.5-10.5 2208) PROTEIN, TOTAL (test 6.9 G/DL 6.1-8.3 code = 2229) ALBUMIN (test code = 4.0 G/DL 3.5-5.2 2200) CALC GLOBULIN (test 2.9 G/DL 1.9-3.7 code = 2240) CALC A/G RATIO (test 1.4 RATIO 1.0-2.6 code = 2234) BILIRUBIN, TOTAL 0.5 MG/DL See_Comment [Automated message] (test code = 2206) The syste m which generated this result transmitted ref erence range: <=1.2. T he reference range was not used to int erpret this result as normal/abnormal . ALKALINE PHOSPHATASE 81 U/L 40-140 (test code = 2203) AST (test code = 36 U/L 9-40 2217) ALT (test code = 39 U/L 5-40 UNLESS OTH ERWISE 2218) INDICATED, ALL TESTING PERFORM ED ATCLINICAL PATH OLOGY LABORATORIES, [facility]. [address] [place] [address] DIRECTOR: DUGLAS DURAN M.D. CLIA NUMBER [id number] CAP ACCREDITATION N O. [id number] LIPID [id number] 00:12:18 Test Item Value Reference Range Interpretation Comments CHOLESTEROL (test 232 MG/DL <200 H code = 2210) TRIGLYCERIDES (test 159 MG/DL <150 H code = 2232) HDL CHOLESTEROL (test 57 MG/DL >39 code = 2220) CALC LDL CHOL (test 146 MG/DL <100 H NOTE: C ALCULATED LDL code = 2237) IS BASED ON MUKESH-PEDRAZA METHOD WHICHINCLUDES ADJUSTABLE TRIGLYCERIDE:VL DL CHOLESTEROL RAT IO.THIS FACTOR VARIES B Y MEASURED TRIGLY CERIDE AND NON-HDLCHOL ESTEROL CONCENTRATIONS WITH INCREASED CALCU LATED LDL SEENIN HIGH ER TRIGLYCERIDE OR LOWER NON-HDL SPECIME NS. FOR MOREINFORMATION , SEE CLIENT ANNOUNCE MENT AT [email or web address] RISK RATIO LDL/HDL 2.56 RATIO <3.22 (test code = 2238) COMPREHENSIVE METABOLIC [id number] 00:12:18 Test Item Value Reference Range Interpretation Comments GLUCOSE (test code = 155 MG/DL 70-99 H 2216) BUN (test code = 15 MG/DL 8-23 2207) CREATININE (test 0.64 MG/DL 0.60-1.30 code = 2213) eGFR (2020 CKD-EPI) 99 >60 (test code = 43904) ML/MIN/1.73 CALC BUN/CREAT (test 23 RATIO 6-28 code = 2235) SODIUM (test code = 141 MEQ/L 325-149 1041) POTASSIUM (test code 4.1 MEQ/L 3.5-5.4 = 2227) CHLORIDE (test code 104 MEQ/L 95-107 = 2214) CARBON DIOXIDE (test 24 MEQ/L 19-31 code = 220) CALCIUM (test code = 9.6 MG/DL 8.5-10.5 2208) PROTEIN, TOTAL (test 7.2 G/DL 6.1-8.3 code = 2228) ALBUMIN (test code = 4.2 G/DL 3.5-5.2 2200) CALC GLOBULIN (test 3.0 G/DL 1.9-3.7 code = 2239) CALC A/G RATIO (test 1.4 RATIO 1.0-2.6 code = 2233) BILIRUBIN, TOTAL 0.3 MG/DL See_Comment [Automated message] (test code = 2206) The syste m which generated this result transmitted ref erence range: <=1.2. T he reference range was not used to int erpret this result as normal/abnormal . ALKALINE PHOSPHATASE 88 U/L 40-140 (test code = 2203) AST (test code = 54 U/L 9-40 H 2217) ALT (test code = 57 U/L 5-40 H UNLESS OT HERWISE 2218) INDICATED, ALL TESTING PERFORM ED ATCLINICAL PATH [facility] LAB[facility], [place] [address] [place] [address] [facility] DIRECTOR: DUGLAS DURAN M.D. CLIA NUMBER [id number] CAP ACCREDITATION N O. [id number] CBC W/AUTO DIFF WITH [id number] 04:10:48 Test Item Value Reference Range Interpretation Comments WBC (test code = 6.9 K/UL 3.5-11.0 1001) RBC (test code = 4.89 M/UL 3.80-5.40 1002) HEMOGLOBIN (test code 14.3 G/DL 11.5-15.5 = 1003) HEMATOCRIT (test code 41.6 % 34.0-45.0 = 1004) MCV (test code = 85.1 fL 80.0-99.0 1005) MCH (test code = 29.2 PG 25.0-33.0 1006) MCHC (test code = 34.4 G/DL 31.0-36.0 1007) RDW (test code = 13.0 % 11.5-15.0 1038) NEUTROPHILS (test 55.4 % code = 1008) LYMPHOCYTES (test 31.4 % code = 1010) MONOCYTES (test code 9.0 % = 1011) EOSINOPHILS (test 3.5 % code = 1012) BASOPHILS (test code 0.6 % = 1013) IMMATURE GRANULOCYTES 0.1 % (test code = 1036) NUCLEATED RBCS (test 0.0 /100 WBC'S See_Comment [Aut omated code = 1065) message] The sy stem which generated this result transmitted reference range : 0.0. The refere nce range was not u sed to interpret th is result as normal/abnormal . PLATELET COUNT (test 260 K/UL 130-400 code = 1015) ABSOLUTE NEUTROPHILS 3.81 K/UL 1.50-7.50 (test code = 1066) ABSOLUTE LYMPHOCYTES 2.16 K/UL 1.00-4.00 (test code = 1067) ABSOLUTE MONOCYTES 0.62 K/UL 0.20-1.00 (test code = 1068) ABSOLUTE EOSINOPHILS 0.24 K/UL 0.00-0.50 (test code = 1040) ABSOLUTE BASOPHILS 0.04 K/UL 0.00-0.20 (test code = 1069) ABS IMMATURE 0.01 K/UL 0.00-0.10 GRANULOCYTES (test code = 1020) ABS NUCLEATED RBCS 0.00 K/UL 0.00-0.11 (test code = 32409) BASIC METABOLIC [id number] 08:57:00 Test Item Value Reference Range Interpretation Comments SODIUM (test code = NA) 140 mmol/L 134-147 N POTASSIUM (test code = 3.8 mmol/L 3.4-5.0 N K) CHLORIDE (test code = 107 mmol/L 100-108 N CL) CARBON DIOXIDE (test 26 mmol/L 21-32 N code = CO2) ANION GAP (test code = 7.0 GAP calc 4.0-15.0 N GAP) GLUCOSE (test code = 107 MG/DL 70-110 N GLU) BLOOD UREA NITROGEN 12 MG/DL 7-18 N (test code = BUN) GLOMERULAR FILTRATION >=60 max estimate >60 RATE (test code = GFR) estGFR CREATININE (test code = 0.5 MG/DL 0.6-1.0 L CREAT) CALCIUM (test code = CA) 8.5 MG/DL 8.5-10.1 N CBC W/AUTO [id number] 08:28:00 Test Item Value Reference Range Interpretation Comments WHITE BLOOD CELL (test code = 5.0 K/mm3 3.5-11.0 N WBC) RED BLOOD CELL (test code = RBC) 4.55 M/mm3 4.70-6.10 L HEMOGLOBIN (test code = HGB) 13.1 G/DL 10.4-14.9 N HEMATOCRIT (test code = HCT) 40.0 % 31.5-44.1 N MEAN CELL VOLUME (test code = 87.9 Fl 84.5-98.6 N MCV) MEAN CELL HGB (test code = MCH) 28.8 pg 27.0-34.2 N MEAN CELL HGB CONCETRATION (test 32.8 G/DL 31.5-34.0 N code = MCHC) RED CELL DISTRIBUTION WIDTH (test 14.0 SD 11.5-14.5 N code = RDW) PLATELET COUNT (test code = PLT) 205.0 K/mm3 150-450 N MEAN PLATELET VOLUME (test code = 9.70 fL 7.0-10.5 N MPV) NEUTROPHIL % (test code = NT%) 47.8 % 40-76 N LYMPHOCYTE % (test code = LY%) 37.9 % 20.5-51.1 N MONOCYTE % (test code = MO%) 9.9 % 1.7-9.3 H EOSINOPHIL % (test code = EO%) 4.0 % 0.0-6.0 N BASOPHIL % (test code = BA%) 0.4 % 0.0-2.0 N NEUTROPHIL # (test code = NT#) 2.37 K/mm3 1.8-7.6 N LYMPHOCYTE # (test code = LY#) 1.9 K/mm3 0.6-3.2 N MONOCYTE # (test code = MO#) 0.5 K/mm3 0.3-1.1 N EOSINOPHIL # (test code = EO#) 0.2 K/mm3 0.0-0.4 N BASOPHIL # (test code = BA#) 0.0 K/mm3 0.0-0.1 N MANUAL DIFF REQUIRED (test code = NO DIFF/SCN CRITERIA MDIFF) - CT CHEST [id number] 15:30:00 Name: TEMITOPE DELEONland : 1960 Age/S: 58 / F [id number] Unit #: [id number] Loc: [place] [address] Phys: Robin Rai MD Acct: [id number] Dis Date: Status: ADM IN PHONE #: [phone] Exam Date: 12/23/2018 6243 FAX #: Reason: PE protocol EXAMS: CPT: [id number] CT CHEST W/CONTRAST 53619 Site ID: [id number] CT angiogram of the [...] Large hiatal hernia. PAGE 1 Signed Report (CONTINUED) Name: TEMITOPE DELEON : 1960 Age/S: 58 / F [id number] Unit #: [id number] Loc: [place] [address] Phys: Robin Rai MD Acct: [id number] Dis Date: Status: ADM IN PHONE #: [phone] Exam Date: 12/23/2018 1505 FAX #: Reason: PE protocol EXAMS: CPT: [id number] CT CHEST W/CONTRAST 36449 (Continued) at 1530 Reported and signed by: Suki Looney M.D. CC: Robin Rai MD Technologist:Oswaldo Payne, RT(R)(CT) CTDI: DLP: Trnscb Date/Time: 12/23/2018 (1530) [email or web address] Orig Print D/T: S: 12/23/2018 (1533) PAGE 2 Signed Report- XR CHEST 1 [id number] 15:25:00 [facility] 1960 Age/S: 58 / F [id number] Unit #: [id number] Loc: [place] [address] Phys: Robin Rai MD Acct: [id number] Dis Date: Status: ADM IN PHONE #: [phone] Exam Date: 12/23/2018 1416 FAX #: Reason: SOB EXAMS: CPT: [id number] XR CHEST 1 V [id number] Fluoro Time: DAP (Gy m2): Air Kerma (mGy): Site ID: [id number] HISTORY: Shortness of breath, chest painFINDINGS: The lungs are clear and normally expanded. The heart and pulmonary vasculature is normal. Osseous structures are unremarkable. Large retrocardiac hiatal hernia is noted. IMPRESSION: Large retrocardiac hiatal hernia. No acute finding. at 1525 Reported and signed by: Suki Looney M.D. CC: Robin Rai MD PAGE 1 Signed Report Name: TEMITOPE DELEON [place] : 1960 Age/S: 58 / F [id number] Unit #: [id number] Loc: [place] [address] Phys: Robin Rai MD Acct: [id number] Dis Date: Status: ADM IN PHONE #: [phone] Exam Date: 12/23/2018 1416 FAX #: Reason: SOB EXAMS: CPT: [id number] XR CHEST 1 V [id number] Fluoro Time: DAP (Gy m2): Air Kerma (mGy): (Continued) Technologist: Sonali Tinsley, RT(R)(MR); Roopa Sharma, RT(R) Trnscb Date/Time: 12/23/2018 (6431) [id number] Orig Print D/T: S: 12/23/2018 (2965) PAGE 2 Signed ReportTROPONIN-I 2018-12-23 13:56:00 Test Item Value Reference Range Interpretation Comments TROPONIN-I (test 0.097 NG/ML 0.000-0.045 HH Negative: < /= 0.045 code = TROPI) Positive: >/= 0.046 Correlation wit h serial results, other cardiac markers, and cl inical findings is nec essary to determine the c linical significance of this result. Quantit ative results using d ifferent methodologies s hould not be compared to one another as nume rical results may mukul yby method. Completed by Nursing: NOGLYCOSYLATED HEMOGLOBIN [id number] 10:22:00 Test Item Value Reference Range Interpretation Comments GLYCOSYLATED HEMOGLOBIN (HA1C) 6.3 % A1C 4.2-6.3 N (test code = GLYHGB) ESTIMATED AVERAGE GLUCOSE (test 134 MG/DLest code = EAG) CBC W/AUTO [id number] 10:14:00 Test Item Value Reference Range Interpretation Comments WHITE BLOOD CELL (test 7.8 K/mm3 3.5-11.0 N code = WBC) RED BLOOD CELL (test 4.62 M/mm3 4.70-6.10 L code = RBC) HEMOGLOBIN (test code 13.3 G/DL 10.4-14.9 N = HGB) HEMATOCRIT (test code 40.6 % 31.5-44.1 N = HCT) MEAN CELL VOLUME (test 87.9 Fl 84.5-98.6 N code = MCV) MEAN CELL HGB (test 28.8 pg 27.0-34.2 N code = MCH) MEAN CELL HGB 32.8 G/DL 31.5-34.0 N CONCETRATION (test code = MCHC) RED CELL DISTRIBUTION 14.2 SD 11.5-14.5 N WIDTH (test code = RDW) PLATELET COUNT (test 209.0 K/mm3 150-450 N code = PLT) MEAN PLATELET VOLUME 9.90 fL 7.0-10.5 N (test code = MPV) NEUTROPHIL % (test 52.9 % 40-76 N code = NT%) LYMPHOCYTE % (test 35.6 % 20.5-51.1 N code = LY%) MONOCYTE % (test code 9.1 % 1.7-9.3 N = MO%) EOSINOPHIL % (test 2.1 % 0.0-6.0 N code = EO%) BASOPHIL % (test code 0.3 % 0.0-2.0 N = BA%) NEUTROPHIL # (test 4.12 K/mm3 1.8-7.6 N code = NT#) LYMPHOCYTE # (test 2.8 K/mm3 0.6-3.2 N code = LY#) MONOCYTE # (test code 0.7 K/mm3 0.3-1.1 N = MO#) EOSINOPHIL # (test 0.2 K/mm3 0.0-0.4 N code = EO#) BASOPHIL # (test code 0.0 K/mm3 0.0-0.1 N = BA#) MANUAL DIFF REQUIRED NO DIFF/SCN CRITERIA SLIDE R EVIEW (test code = MDIFF) CONSISTA NT WITH AUTO DIFFERENTIAL. RBC [id number] 10:14:00 Test Item Value Reference Range Interpretation Comments PLATELET ESTIMATE ADEQUATE THOUSAND ADEQUATE MANUA L ESTIMATE: (test code = PLTEST) 204,000 - 255,000 PLATELET MORPHOLOGY NORMAL (test code = PLTMORPH) CBC W/AUTO [id number] 10:13:00 Test Item Value Reference Range Interpretation Comments WHITE BLOOD CELL (test 7.8 K/mm3 3.5-11.0 N code = WBC) RED BLOOD CELL (test 4.62 M/mm3 4.70-6.10 L code = RBC) HEMOGLOBIN (test code 13.3 G/DL 10.4-14.9 N = HGB) HEMATOCRIT (test code 40.6 % 31.5-44.1 N = HCT) MEAN CELL VOLUME (test 87.9 Fl 84.5-98.6 N code = MCV) MEAN CELL HGB (test 28.8 pg 27.0-34.2 N code = MCH) MEAN CELL HGB 32.8 G/DL 31.5-34.0 N CONCETRATION (test code = MCHC) RED CELL DISTRIBUTION 14.2 SD 11.5-14.5 N WIDTH (test code = RDW) PLATELET COUNT (test 209.0 K/mm3 150-450 N code = PLT) MEAN PLATELET VOLUME 9.90 fL 7.0-10.5 N (test code = MPV) NEUTROPHIL % (test 52.9 % 40-76 N code = NT%) LYMPHOCYTE % (test 35.6 % 20.5-51.1 N code = LY%) MONOCYTE % (test code 9.1 % 1.7-9.3 N = MO%) EOSINOPHIL % (test 2.1 % 0.0-6.0 N code = EO%) BASOPHIL % (test code 0.3 % 0.0-2.0 N = BA%) NEUTROPHIL # (test 4.12 K/mm3 1.8-7.6 N code = NT#) LYMPHOCYTE # (test 2.8 K/mm3 0.6-3.2 N code = LY#) MONOCYTE # (test code 0.7 K/mm3 0.3-1.1 N = MO#) EOSINOPHIL # (test 0.2 K/mm3 0.0-0.4 N code = EO#) BASOPHIL # (test code 0.0 K/mm3 0.0-0.1 N = BA#) MANUAL DIFF REQUIRED NO DIFF/SCN CRITERIA SLIDE R EVIEW (test code = MDIFF) CONSISTA NT WITH AUTO DIFFERENTIAL. CBC W/AUTO [id number] 10:13:00 Test Item Value Reference Range Interpretation Comments WHITE BLOOD CELL (test 7.8 K/mm3 3.5-11.0 N code = WBC) RED BLOOD CELL (test 4.62 M/mm3 4.70-6.10 L code = RBC) HEMOGLOBIN (test code 13.3 G/DL 10.4-14.9 N = HGB) HEMATOCRIT (test code 40.6 % 31.5-44.1 N = HCT) MEAN CELL VOLUME (test 87.9 Fl 84.5-98.6 N code = MCV) MEAN CELL HGB (test 28.8 pg 27.0-34.2 N code = MCH) MEAN CELL HGB 32.8 G/DL 31.5-34.0 N CONCETRATION (test code = MCHC) RED CELL DISTRIBUTION 14.2 SD 11.5-14.5 N WIDTH (test code = RDW) PLATELET COUNT (test 209.0 K/mm3 150-450 N code = PLT) MEAN PLATELET VOLUME 9.90 fL 7.0-10.5 N (test code = MPV) NEUTROPHIL % (test 52.9 % 40-76 N code = NT%) LYMPHOCYTE % (test 35.6 % 20.5-51.1 N code = LY%) MONOCYTE % (test code 9.1 % 1.7-9.3 N = MO%) EOSINOPHIL % (test 2.1 % 0.0-6.0 N code = EO%) BASOPHIL % (test code 0.3 % 0.0-2.0 N = BA%) NEUTROPHIL # (test 4.12 K/mm3 1.8-7.6 N code = NT#) LYMPHOCYTE # (test 2.8 K/mm3 0.6-3.2 N code = LY#) MONOCYTE # (test code 0.7 K/mm3 0.3-1.1 N = MO#) EOSINOPHIL # (test 0.2 K/mm3 0.0-0.4 N code = EO#) BASOPHIL # (test code 0.0 K/mm3 0.0-0.1 N = BA#) MANUAL DIFF REQUIRED NO DIFF/SCN CRITERIA SLIDE R EVIEW (test code = MDIFF) CONSISTA NT WITH AUTO DIFFERENTIAL. PROTHROMBIN [id number] 09:32:00 Test Item Value Reference Range Interpretation Comments PT PATIENT (test code = PTP) 12.9 SECONDS 9.3-12.9 N INTERNATIONAL NORMAL RATIO 1.12 INR Unit 0.8-1.2 N (test code = INR) [id number] 09:32:00 Test Item Value Reference Range Interpretation Comments D-DIMER (test code = DDIMER) 1399 ng/mLFEU 215-500 HH COMPREHENSIVE METABOLIC [id number] 09:31:00 Test Item Value Reference Range Interpretation Comments SODIUM (test code = NA) 142 mmol/L 134-147 N POTASSIUM (test code = 4.0 mmol/L 3.4-5.0 N K) CHLORIDE (test code = 109 mmol/L 100-108 H CL) CARBON DIOXIDE (test 26 mmol/L 21-32 N code = CO2) ANION GAP (test code = 7.0 GAP calc 4.0-15.0 N GAP) GLUCOSE (test code = 111 MG/DL 70-110 H GLU) BLOOD UREA NITROGEN 17 MG/DL 7-18 N (test code = BUN) GLOMERULAR FILTRATION >=60 max estimate >60 RATE (test code = GFR) estGFR CREATININE (test code = 0.6 MG/DL 0.6-1.0 N CREAT) TOTAL PROTEIN (test code 7.2 G/DL 6.4-8.2 N = PROT) ALBUMIN (test code = 3.1 G/DL 3.4-5.0 L ALB) GLOBULIN (test code = 4.1 GM/dL GLOB) ALBUMIN/GLOBULIN RATIO 0.8 RATIO 1.2-2.2 L (test code = A/G) CALCIUM (test code = CA) 8.7 MG/DL 8.5-10.1 N BILIRUBIN TOTAL (test 0.30 MG/DL 0.2-1.2 N code = BILT) SGOT/AST (test code = 76 Unit/L 15-37 H AST) SGPT/ALT (test code = 123 Unit/L 12-78 H ALT) ALKALINE PHOSPHATASE 80 Unit/L 45-117 N TOTAL (test code = ALKP) LIPID PROFILE (CORONARY RISK)2018-12-23 09:31:00 Test Item Value Reference Range Interpretation Comments TRIGLYCERIDES (test code = TRIG) 127 MG/DL 0-150 N CHOLESTEROL (test code = CHOL) 201 MG/DL 133-200 H CHOLESTEROL/HDL RATIO (test code = 3.59 RATIO >0 CHOLHDL) HDL CHOLESTEROL (test code = HDL) 56 MG/DL 40-59 N NON-HDL CHOLESTEROL (test code = 145 mg/dL <130 H NHDL) LIPOPROTEIN LDL (test code = LDL) 129 MG/DL 0-129 N LDL/HDL (test code = LDL/HDL) 2.30 Ratio 1.48-3.22 Avg N [id number] 09:31:00 Test Item Value Reference Range Interpretation Comments PHOSPHOROUS (test code = PHOS) 3.7 MG/DL 2.5-4.9 N RULE OUT [place] [id number] 09:31:00 Test Item Value Reference Range Interpretation Comments CREATINE KINASE 68 Unit/L 26-192 N (CK) (test code = CK) TROPONIN-I (test 0.118 NG/ML 0.000-0.045 HH Negative: < /= 0.045 code = TROPI) Positive: >/= 0.046 Correlation wit h serial results, other cardiac markers, and cl inical findings is nec essary to determine th e clinical signif icance of this result. Quantitative re sults using different methodologies s hould not be compared to one another as nume rical results may mukul yby method. [id number] 09:31:00 Test Item Value Reference Range Interpretation Comments MAGNESIUM (test code = MAG) 1.9 MG/DL 1.8-2.4 N THYROID STIMULATING [id number] 09:31:00 Test Item Value Reference Range Interpretation Comments THYROID STIMULATING HORMONE 1.400 mcIU/ML 0.340-4.820 N (test code = TSH) PROTHROMBIN [id number] 09:20:00 Test Item Value Reference Range Interpretation Comments PT PATIENT (test code = PTP) 12.9 SECONDS 9.3-12.9 N INTERNATIONAL NORMAL RATIO 1.12 INR Unit 0.8-1.2 N (test code = INR) [id number] 09:20:00 Test Item Value Reference Range Interpretation Comments D-DIMER (test code = DDIMER) ng/mLFEU 215-500 CBC W/AUTO [id number] 09:19:00 Test Item Value Reference Range Interpretation Comments WHITE BLOOD CELL (test code = 7.8 K/mm3 3.5-11.0 N WBC) RED BLOOD CELL (test code = RBC) 4.62 M/mm3 4.70-6.10 L HEMOGLOBIN (test code = HGB) 13.3 G/DL 10.4-14.9 N HEMATOCRIT (test code = HCT) 40.6 % 31.5-44.1 N MEAN CELL VOLUME (test code = 87.9 Fl 84.5-98.6 N MCV) MEAN CELL HGB (test code = MCH) 28.8 pg 27.0-34.2 N MEAN CELL HGB CONCETRATION (test 32.8 G/DL 31.5-34.0 N code = MCHC) RED CELL DISTRIBUTION WIDTH (test 14.2 SD 11.5-14.5 N code = RDW) PLATELET COUNT (test code = PLT) 209.0 K/mm3 150-450 N MEAN PLATELET VOLUME (test code = 9.90 fL 7.0-10.5 N MPV) NEUTROPHIL % (test code = NT%) % 40-76 N LYMPHOCYTE % (test code = LY%) % 20.5-51.1 N MONOCYTE % (test code = MO%) % 1.7-9.3 N EOSINOPHIL % (test code = EO%) % 0.0-6.0 N BASOPHIL % (test code = BA%) % 0.0-2.0 N NEUTROPHIL # (test code = NT#) K/mm3 1.8-7.6 N LYMPHOCYTE # (test code = LY#) K/mm3 0.6-3.2 N MONOCYTE # (test code = MO#) K/mm3 0.3-1.1 N EOSINOPHIL # (test code = EO#) K/mm3 0.0-0.4 N BASOPHIL # (test code = BA#) K/mm3 0.0-0.1 N MANUAL DIFF REQUIRED (test code = DIFF/SCN CRITERIA MDIFF) COMPREHENSIVE METABOLIC [id number] 09:11:00 Test Item Value Reference Range Interpretation Comments SODIUM (test code = NA) 142 mmol/L 134-147 N POTASSIUM (test code = K) 4.0 mmol/L 3.4-5.0 N CHLORIDE (test code = CL) 109 mmol/L 100-108 H CARBON DIOXIDE (test code = CO2) 26 mmol/L 21-32 N ANION GAP (test code = GAP) 7.0 GAP calc 4.0-15.0 N GLUCOSE (test code = GLU) 111 MG/DL 70-110 H BLOOD UREA NITROGEN (test code = 17 MG/DL 7-18 N BUN) GLOMERULAR FILTRATION RATE (test estGFR >60 code = GFR) CREATININE (test code = CREAT) MG/DL 0.6-1.0 TOTAL PROTEIN (test code = PROT) G/DL 6.4-8.2 ALBUMIN (test code = ALB) G/DL 3.4-5.0 GLOBULIN (test code = GLOB) GM/dL ALBUMIN/GLOBULIN RATIO (test RATIO 1.2-2.2 code = A/G) CALCIUM (test code = CA) 8.7 MG/DL 8.5-10.1 N BILIRUBIN TOTAL (test code = MG/DL 0.2-1.2 BILT) SGOT/AST (test code = AST) Unit/L 15-37 SGPT/ALT (test code = ALT) Unit/L 12-78 ALKALINE PHOSPHATASE TOTAL (test Unit/L 45-117 code = ALKP) LIPID PROFILE (CORONARY RISK)2018-12-23 09:11:00 Test Item Value Reference Range Interpretation Comments TRIGLYCERIDES (test code = TRIG) MG/DL 0-150 CHOLESTEROL (test code = CHOL) MG/DL 133-200 CHOLESTEROL/HDL RATIO (test code = RATIO >0 CHOLHDL) HDL CHOLESTEROL (test code = HDL) MG/DL 40-59 NON-HDL CHOLESTEROL (test code = NHDL) mg/dL <130 LIPOPROTEIN LDL (test code = LDL) MG/DL 0-129 LDL/HDL (test code = LDL/HDL) Ratio 1.48-3.22 Avg [id number] 09:11:00 Test Item Value Reference Range Interpretation Comments PHOSPHOROUS (test code = PHOS) MG/DL 2.5-4.9 RULE OUT [place] [id number] 09:11:00 Test Item Value Reference Range Interpretation Comments CREATINE KINASE (CK) (test code = CK) Unit/L 26-192 TROPONIN-I (test code = TROPI) NG/ML 0.000-0.045 [id number] 09:11:00 Test Item Value Reference Range Interpretation Comments MAGNESIUM (test code = MAG) MG/DL 1.8-2.4 THYROID STIMULATING [id number] 09:11:00 Test Item Value Reference Range Interpretation Comments THYROID STIMULATING HORMONE (test mcIU/ML 0.340-4.820 code = TSH) CPK-MB [id number] 09:01:00 Test Item Value Reference Range Interpretation Comments CREATINE KINASE (CK) (test code = 64 Unit/L 26-192 N CK) CKMB (test code = CKMBT) 1.5 NG/ML 0.0-4.9 N RELATIVE % INDEX (test code = REL%) 2.3 % 0.0-2.5 N [id number] 08:04:00 Test Item Value Reference Range Interpretation Comments TROPONIN-I (test 0.124 NG/ML 0.000-0.045 HH Negative: < /= 0.045 code = TROPI) Positive: >/= 0.046 Correlation wit h serial results, other cardiac markers, and cl inical findings is nec essary to determine the c linical significance of this result. Quantit ative results using d ifferent methodologies s hould not be compared to one another as nume rical results may mukul yby method. Completed by Nursing: NO
[2022-05-16] MEDS ORDERED: LIDOCAINE 1% MPF 5 ML VIAL ONE (16:34)
--- NOTE | 2022-05-16 16:56 | ER ---
Nurse's Notes [facility] Name: Temitope Deleon Age: 61 yrs Sex: Female : 1960 Arrival Date: 05/16/2022 Time: 16:07 Bed 16 [facility] MD: Diagnosis: Cutaneous abscess of left upper limb Presentation: 05/16 16:09 Chief complaint: Patient states: Abscess to L forearm for 5 days. No fever or drainage ll1 at this time. Ebola Screen: Patient denies travel to an Ebola-affected area in the 21 days before illness onset. Initial Sepsis Screen: Does the patient meet any 2 criteria? No. Patient's initial sepsis screen is negative. Does the patient have a suspected source of infection? Yes: Skin breakdown/wound. Risk Assessment: Do you want to hurt yourself or someone else? Patient reports no desire to harm self or others. 16:09 Method Of Arrival: Ambulatory ll1 16:10 Coronavirus screen: Vaccine status: Patient reports being unvaccinated. Client denies ll1 travel out of the [place] in the last 14 days. At this time, the client does not indicate any symptoms associated with coronavirus-19. Onset of symptoms was May 12, 2022. 16:10 Acuity: BETTINA 4 ll1 Triage Assessment: 16:10 General: Appears in no apparent distress. Behavior is cooperative, appropriate for age. ll1 Pain: Quality of pain is described as aching. Derm: Abscess. Historical: - Allergies: 16:14 Decadron; ll1 - PMHx: 16:09 Gastroesophageal reflux disease; Hypercholesterolemia; SUPRAVENTRICULAR TACHYCARDIA; ll1 - PSHx: 16:09 Cholecystectomy; Total abdominal hysterectomy; ll1 - Immunization history:: Adult Immunizations up to date, Client reports having NOT received the Covid vaccine. - Social history:: Smoking status: Patient denies any tobacco usage or history of. - Family history:: not pertinent. Screenin:39 Abuse screen: Denies threats or abuse. Denies injuries from another. Nutritional db screening: No deficits noted. Tuberculosis screening: No symptoms or risk factors identified. Fall Risk None identified. No fall in past 12 months (0 pts). No secondary diagnosis (0 pts). No IV (0 pts). Ambulatory Aid- None/Bed Rest/Nurse Assist (0 pts). Gait- Normal/Bed Rest/Wheelchair (0 pts) Mental Status- Oriented to own ability (0 pts). Total Baez Fall Scale indicates No Risk (0-24 pts). Assessment: 16:36 Reassessment: Patient appears in no apparent distress at this time. Patient is alert, db oriented x 3, equal unlabored respirations, skin warm/dry/pink. I\T\D setup at patient bedside. General: Appears in no apparent distress. comfortable. Pain: Complains of pain in left arm Pain began 2-3 days ago. 16:39 Reassessment: noted redness and raised area to left forearm. Derm: Wound noted left arm db Reports pain. Vital Signs: 16:10 BP 116 / 70; Pulse 65; Resp 16; Temp 97.6; Pulse Ox 99% ; Weight 92.99 kg; Pain 5/10; ll1 ED Course: 16:07 Patient arrived in ED. am2 16:09 Arm band placed on. ll1 16:14 Triage completed. ll1 16:16 Connor Alvarado MD is Attending Physician. rt 16:28 Kelley Diggs, RN is Primary Nurse. db 16:39 Patient has correct armband on for positive identification. Bed in low position. Call db light in reach. Side rails up X 1. 17:11 Assist provider with I \T\ D: of an abscess on left. Patient did not have IV access db during this emergency room visit. Administered Medications: 16:33 Drug: Lidocaine (1 %) 1 ml {Note: provider.} Volume: 5 ml; Route: Infiltration; db Medication: 17:12 VIS not applicable for this client. db Outcome: 16:55 Discharge ordered by . rt 17:12 Discharged to home ambulatory. db 17:12 Condition: stable 17:12 Discharge instructions given to patient, Instructed on discharge instructions, follow up and referral plans. Demonstrated understanding of instructions, follow-up care. 17:12 Patient left the ED. db Signatures: Mary Jaimes am2 Beth Tran RN RN ll1 Kelley Diggs, RN RN db Connor Alvarado MD MD rt Corrections: (The following items were deleted from the chart) 16:14 16:09 Chief complaint: Patient states: Abscess to arm for days. No fever. ll1 ll1 16:15 16:10 Pulse 65bpm; Resp 16bpm; Pulse Ox 99%; Temp 97.6F; 92.99 kg; Pain 5/10; ll1 ll1
--- NOTE | 2022-05-16 16:56 | EDPHYS ---
Physician Documentation [facility] Name: Temitope Deleon Age: 61 yrs Sex: Female : 1960 Arrival Date: 05/16/2022 Time: 16:07 Bed 16 Private MD: ED Physician Connor Alvarado HPI: 05/16 16:56 This 61 yrs old Female presents to ER via Ambulatory with complaints of Skin rt Problem - arm abscess. 16:56 The rash is located on the left arm. The rash can be described as abscess. Onset: The rt symptoms/episode began/occurred 5 day(s) ago, and became worse. Associated signs and symptoms: Pertinent positives: None. Pertinent negatives:. Severity of symptoms: At their worst the symptoms were mild. Patient presents to the ED with an area of redness to the left arm with a pustule draining pus starting about 5 days ago. It worsened today prompting her to come to the ED for further evaluation. Denies other acute complaints at this time. Symptoms are mild in severity, no other aggravating or alleviating factors.. Historical: - Allergies: 16:14 Decadron; ll1 - PMHx: 16:09 Gastroesophageal reflux disease; Hypercholesterolemia; SUPRAVENTRICULAR TACHYCARDIA; ll1 - PSHx: 16:09 Cholecystectomy; Total abdominal hysterectomy; ll1 - Immunization history:: Adult Immunizations up to date, Client reports having NOT received the Covid vaccine. - Social history:: Smoking status: Patient denies any tobacco usage or history of. - Family history:: not pertinent. ROS: 16:56 Constitutional: Negative for fever, chills, and weight loss, ENT: Negative for injury, rt pain, and discharge, Neck: Negative for injury, pain, and swelling, Cardiovascular: Negative for chest pain, palpitations, and edema, Respiratory: Negative for shortness of breath, cough, wheezing, and pleuritic chest pain, Abdomen/GI: Negative for abdominal pain, nausea, vomiting, diarrhea, and constipation, Neuro: Negative for headache, weakness, numbness, tingling, and seizure, Psych: Negative for depression, anxiety, suicide ideation, homicidal ideation, and hallucinations. 16:56 Skin: Positive for abscess, cellulitis. Exam: 16:56 Constitutional: This is a well developed, well nourished patient who is awake, alert, rt and in no acute distress. Head/Face: Normocephalic, atraumatic. Chest/axilla: Normal chest wall appearance and motion. Nontender with no deformity. No lesions are appreciated. Cardiovascular: Regular rate and rhythm with a normal S1 and S2. No gallops, murmurs, or rubs. Normal PMI, no JVD. No pulse deficits. Respiratory: Lungs have equal breath sounds bilaterally, clear to auscultation and percussion. No rales, rhonchi or wheezes noted. No increased work of breathing, no retractions or nasal flaring. Abdomen/GI: Soft, non-tender, with normal bowel sounds. No distension or tympany. No guarding or rebound. No evidence of tenderness throughout. Neuro: Awake and alert, GCS 15, oriented to person, place, time, and situation. Cranial nerves II-XII grossly intact. Motor strength 5/5 in all extremities. Sensory grossly intact. Cerebellar exam normal. Normal gait. Psych: Awake, alert, with orientation to person, place and time. Behavior, mood, and affect are within normal limits. 16:56 Musculoskeletal/extremity: As per skin exam, no swelling, deformity. 16:56 Skin: 0.5 cm abscess coming to ahead on the left forearm with about a 2 cm diameter area of cellulitis surrounding.. Vital Signs: 16:10 BP 116 / 70; Pulse 65; Resp 16; Temp 97.6; Pulse Ox 99% ; Weight 92.99 kg; Pain 5/10; ll1 Procedures: 16:56 I \T\ D: Incision and drainage was performed for an abscess of the left left arm Prepped rt with alcohol, Anesthetized with 1 ml's 1% Lidocaine. Incised with #11 blade. Drained small amount purulent fluid. Dressing: sterile 4x4 gauze, the patient tolerated the procedure well. MDM: 16:17 Patient medically screened. rt 16:56 Differential diagnosis: abscess, cellulitis. ED course: Patient presents to the ED with rt an abscess to the left forearm. It was incised and drained without difficulty. We will start patient on doxycycline, no clinical indicators for sepsis, patient is stable for outpatient care, return precautions discussed. Patient to follow-up with PCP.. 17:00 Data reviewed: vital signs, nurses notes. rt 05/16 16:24 Order name: Incision \T\ Drainage Setup; Complete Time: 16:35 rt Administered Medications: 16:33 Drug: Lidocaine (1 %) 1 ml {Note: provider.} Volume: 5 ml; Route: Infiltration; db Disposition Summary: 05/16/22 16:55 Discharge Ordered Location: Home rt Problem: new rt Symptoms: have improved rt Condition: Stable rt Diagnosis - Cutaneous abscess of left upper limb rt Followup: rt - With: Private Physician - When: 5 - 6 days - Reason: Discharge Instructions: - Discharge Summary Sheet rt - Skin Abscess rt Forms: - Medication Reconciliation Form rt - Thank You Letter rt - Antibiotic Education rt - Prescription Opioid Use rt Prescriptions: - Doxycycline Hyclate 100 mg Oral Tablet - take 1 tablet by ORAL route every 12 hours; 20 tablet; Refills: 0, Product rt Selection Permitted Signatures: Beth Tran RN RN ll1 Kelley Diggs RN RN db Connor Alvarado MD MD rt
[2022-05-16 17:22] VITALS: BP 116/70; TEMP 97.6; O2SAT 99
== END 2022-05-16 17:12 | disposition home or self-care (01) ==
LOC: ER 16:06
PROC: 0H9CXZZ Drainage of Left Upper Arm Skin, External Approach (ICD-10-PCS; principal; 2022-05-16)
DX: L02.414 Cutaneous abscess of left upper limb (principal)
CPT/HCPCS: 99283; 10060; J2001

== ENCOUNTER 2022-05-18 09:58 | Emergency (ER) | payer OTHER ==
--- OUTSIDE RECORDS SUMMARY | 2022-05-18 10:03 | XMS REPORT | Continuity of Care Document ---
:1960 Author Organization [facility] t Address [address] [place] [address] Care Team Providers Name Role Phone Asked, [...] Allergie 12-23 Clear s 00:00: Fernandez 00 [facility] DEXAMETH DRUG Active Hives [facility] ASONE 4- ity of SODIUM 00:00: [place] [facility] 00 [facility] Family History Family Member Diagnosis Comments Start Date Stop Date Source Natural father Diabetes [facility] Natural father Rheum arthritis [facility] Natural mother Diabetes [facility] Social History Social Habit Start Date Stop Date Quantity Comments Source Alcohol intake 2016-06-27 2016-06-27 Current [facility] 00:00:00 00:00:00 non-drinker of Hospital alcohol (finding) Sex Ass[birth year] At [birth year] [facility] 00:00:00 00:00:00 Hospital Smoking Status Start Date Stop Date Source Never smoked tobacco [facility] Medications Ordered Filled Start Stop Current Ordering Indication Dosage Frequency Signature Comments Components Source Medication Medication Date Date Medication? Clinician (SIG) Name Name LORAZepam Yes .5mg QD Take 0.5 Meth jayme (ATIVAN) 1-[address] 0.5 MG 19:38: mouth [facility]ospita tablet 08 nightly as l needed for anxiety. timolol Yes 1[drp] QD Administer Me thodi (TIMOPTIC) 1-[address] 0.5 % 19:38: both eyes Hospita ophthalmic 08 daily. l solution citalopram Yes 20mg QD Take 20 mg [...] eyes Hospita ophthalmic 08 daily. l solution citalopram Yes 20mg QD Take 20 mg M ethodi (CeleXA) 20 1-[address] MG tablet 19:38: daily. Hospit a 08 l latanoprost 2015-06 Yes 1[drp] QD Administer Methodi (XALATAN) 2-[address] 0.005 % 00:00: both eyes Hospi ta ophthalmic 00 nightly. l solution latanoprost 2015-06 Yes 1[drp] QD Administer Methodi (XALATAN) 2-[address] 0.005 % 00:00: both eyes Hospi ta ophthalmic 00 nightly. l solution pantoprazol Yes 40mg QD Take 40 mg Methodi e 4-[address] (PROTONIX) 00:00: daily. Hospi ta 40 MG EC 00 l tablet aspirin 2016-0 Yes 81mg QD Take 81 mg Meth jayme (ECOTRIN) 4-[address] 81 MG 00:00: daily. Hospita enteric 00 l coated tablet pantoprazol 2016-0 Yes 40mg QD Take 40 mg Methodi e 4-[address] (PROTONIX) 00:00: daily. Hospi ta 40 MG EC 00 l tablet aspirin 2016-0 Yes 81mg QD Take 81 mg Meth jayme (ECOTRIN) 4-[address] 81 MG 00:00: daily. Hospita enteric 00 l coated tablet Procedures This patient has no known procedures. Plan of Care Planned Activity Planned Date Details Comments Source Future Scheduled 2022-04-20 HEPATITIS B VACCINES [facility] Test 17:43:32 (1 of 3 - 3-dose series) [code = HEPATITIS B VACCINES (1 of 3 - 3-dose series)] Future Scheduled 2022-04-20 COVID-19 VACCINE (#1) [facility] Test 17:43:32 [code = COVID-19 VACCINE (#1)] Future Scheduled 2022-04-20 Screening for [facility] Test 17:43:32 malignant neoplasm of cervix (procedure) [code = 976652834] Future Scheduled 2022-04-20 BREAST CANCER [facility] Test 17:43:32 SCREENING [code = BREAST CANCER SCREENING] Future Scheduled 2022-04-20 COLONOSCOPY SCREENING [facility] Test 17:43:32 [code = COLONOSCOPY SCREENING] Future Scheduled 2022-04-20 HEPATITIS B VACCINES [facility] Test 17:43:32 (1 of 3 - 3-dose series) [code = HEPATITIS B VACCINES (1 of 3 - 3-dose series)] Future Scheduled 2022-04-20 COVID-19 VACCINE (#1) [facility] Test 17:43:32 [code = COVID-19 VACCINE (#1)] Future Scheduled 2022-04-20 Screening for [facility] Test 17:43:32 malignant neoplasm of cervix (procedure) [code = 555566291] Future Scheduled 2022-04-20 BREAST CANCER [facility] Test 17:43:32 SCREENING [code = BREAST CANCER SCREENING] Future Scheduled 2022-04-20 COLONOSCOPY SCREENING [facility] Test 17:43:32 [code = COLONOSCOPY SCREENING] Future Scheduled 2022-04-20 SHINGLES VACCINES (1 [facility] Test 17:43:32 of 2) [code = SHINGLES VACCINES (1 of 2)] Future Scheduled 2022-04-20 INFLUENZA VACCINE [facility] Test 17:43:32 [code = INFLUENZA VACCINE] Future Scheduled 2022-04-20 SHINGLES VACCINES (1 [facility] Test 17:43:32 of 2) [code = SHINGLES VACCINES (1 of 2)] Future Scheduled 2022-04-20 INFLUENZA VACCINE [facility] Test 17:43:32 [code = INFLUENZA VACCINE] Encounters Start End Encounter Admission Attending Care Care Encounter Source Date/Time Date/Time Type Type Clinicians Facility Department ID 2020-06-22 2020-06-22 Outpatient R [facility] [id number] [facility] 15:00:00 15:00:00 [id number] [facility] 2018-12-23 2018-12-24 Inpatient EM Rai, ANTONIO INTE.02 [id number] [facility] 04:47:00 12:25:00 [facility] 81 [facility] Results Test Description Test Time Test Comments Results Result [facility] e Comments SCR MAMM 2021-11-15 BILATERAL JERI 13:10:04 CAD DIGITAL Name: Temitope : 1960 Sex: F - SCR MAMM BILATERAL JERI CAD DIGITALBILATERAL DIGITAL SCREENING MAMMOGRAM 3D/2D WITH CAD: 2CLINICAL: Asymptomatic. Digital breast tomosynthesis was performed in addition to routine CC and MLO views. Current mammographic images were evaluated by Trion[employer] CAD (computer-aided detection) software. No prior exams [...] one year. Andrea Berger M.D. et/penrad:11/15/2021 13:10:04 Umbrella Tipper Machine: Liz Chow MM, [facility] Mammographyletter sent: BIRADS 1-2 Normal Mammogram BI-RADS: 2 Benign HEMOGLOBIN A1c 2021-09-12 04:34:58 Test Item Value Reference Range Interpretation Comme nts HEMOGLOBIN A1c (test code = 6.6 % 4.2-5.6 H [employer] 55605) GUIDELINES FOR HGB A1C: PREDIABETES/INC REASED RISK [...] TESTING OR LABORATORY C ONSULTATION. COMPREHENSIVE METABOLIC [id number] 03:34:12 Test Item Value Reference Range Interpretation Comments GLUCOSE (test code = 132 MG/DL 70-99 H 2216) BUN (test code = 13 MG/DL 8-23 2207) CREATININE (test 0.50 MG/DL 0.60-1.30 L code = 2214) eGFR (2020 CKD-EPI) 105 >60 (test code = 35946) ML/MIN/1.73 CALC BUN/CREAT (test 26 RATIO 6-28 code = 2235) SODIUM (test code = 141 MEQ/L 017-805 9277) POTASSIUM (test code 4.5 MEQ/L 3.5-5.4 = 2227) CHLORIDE (test code 103 MEQ/L 95-107 = 2214) CARBON DIOXIDE (test 23 MEQ/L 19-31 code = 2206) CALCIUM (test code = 9.4 MG/DL 8.5-10.5 2208) PROTEIN, TOTAL (test 6.9 G/DL 6.1-8.3 code = 2229) ALBUMIN (test code = 4.0 G/DL 3.5-5.2 2200) CALC GLOBULIN (test 2.9 G/DL 1.9-3.7 code = 2240) CALC A/G RATIO (test 1.4 RATIO 1.0-2.6 code = 2234) BILIRUBIN, TOTAL 0.5 MG/DL See_Comment [Automated message] (test code = 220) The syste m which generated this result transmitted ref erence range: <=1.2. T he reference range was not used to int erpret this result as normal/abnormal . ALKALINE PHOSPHATASE 81 U/L 40-140 (test code = 220) AST (test code = 36 U/L 9-40 2217) ALT (test code = 39 U/L 5-40 UNLESS OTH ERWISE 2218) INDICATED, ALL TESTING PERFORM ED ATCLINICAL PATH OLOGY LABORATORIES, [facility]. [address] [place], [place] [id number] [place] [address] DIRECTOR: DUGLAS DURAN M.D. CLIA NUMBER [id number] CAP ACCREDITATION N O. [id number] LIPID [id number] 00:12:18 Test Item Value Reference Range Interpretation [...] , SEE CLIENT ANNOUNCE MENT AT [email or web address] RISK RATIO LDL/HDL 2.56 RATIO <3.22 (test code = 2238) COMPREHENSIVE METABOLIC [id number] 00:12:18 Test Item Value Reference Range Interpretation Comments GLUCOSE (test code = 155 MG/DL 70-99 H 2216) BUN (test code = 15 MG/DL 8-2207) CREATININE (test 0.64 MG/DL 0.60-1.30 code = 221) eGFR (2020 CKD-EPI) 99 >60 (test code = 13848) ML/MIN/1.73 CALC BUN/CREAT (test 23 RATIO 6-28 code = 2235) SODIUM (test code = 141 MEQ/L 708-216 4061) POTASSIUM (test code 4.1 MEQ/L 3.5-5.4 = 2227) CHLORIDE (test code 104 MEQ/L 95-107 = 2214) CARBON DIOXIDE (test 24 MEQ/L 19-31 code = 220) CALCIUM (test code = 9.6 MG/DL 8.5-10.5 2208) PROTEIN, TOTAL (test 7.2 G/DL 6.1-8.3 code = 2228) ALBUMIN (test code = 4.2 G/DL 3.5-5.2 2200) CALC GLOBULIN (test 3.0 G/DL 1.9-3.7 code = 224) CALC A/G RATIO (test 1.4 RATIO 1.0-2.6 code = 2233) BILIRUBIN, TOTAL 0.3 MG/DL See_Comment [Automated message] (test code = 2207) The syste m which generated this result transmitted ref erence range: <=1.2. T he reference range was not used to int erpret this result as normal/abnormal . ALKALINE PHOSPHATASE 88 U/L 40-140 (test code = 2204) AST (test code = 54 U/L 9-40 H 2217) ALT (test code = 57 U/L 5-40 H UNLESS OTH ERWISE 2218) INDICATED, ALL TESTING PERFORM ED ATCL[facility]ICAL PATH [facility], [place] [address], [place] [address] [place] [address] DIRECTOR: DUGLAS DURAN M.D. CLIA NUMBER [id number] CAP ACCREDITATION N O. [id number] CBC W/AUTO DIFF WITH [id number] 04:10:48 Test Item Value Reference Range Interpretation [...] RBCS 0.00 K/UL 0.00-0.11 (test code = 56154) BASIC METABOLIC [id number] 08:57:00 Test Item Value Reference Range Interpretation [...] CA) 8.5 MG/DL 8.5-10.1 N CBC W/AUTO [id number] 08:28:00 Test Item Value Reference Range Interpretation [...] NO DIFF/SCN CRITERIA MDIFF) - CT CHEST [id number] 15:30:00 Name: TEMITOPE DELEON Afton : 1960 Age/S: 58 / F [address] Unit #: [id number] Loc: [place] [address] Phys: Robin Rai MD Acct: [id number] Dis Date: Status: ADM IN PHONE #: [phone] Exam Date: 12/23/2018 0493 FAX #: Reason: PE protocol EXAMS: CPT: [id number] CT CHEST W/CONTRAST 68261 Site ID: [id number] CT angiogram of the chest with pulmonary embolism protocol CLINICALHISTORY: Palpitations, chest pain COMPARISON STUDY: Chest x-ray [...] hernia. IMPRESSION: 1. No evidence of acute pulmonaryembolus or acute abnormality within the chest. 2. Large hiatal hernia. PAGE 1 Signed Report (CONTINUED) Name: TEMITOPE DELEONland : 1960 Age/S: 58 / F [address] Unit #: [id number] Loc: [place] [address] Phys: Robin Rai MD Acct: [id number] Dis Date: Status: ADM IN PHONE #: [phone] Exam Date: 12/23/2018 1505 FAX #: Reason: PE protocol EXAMS: CPT: [id number] CT CHEST W/CONTRAST 00085 (Continued) at 1530 Reported and signed by: Suki Looney M.D. CC: Robin Rai MD Technologist:sOwaldo Payne, RT(R)(CT) CTDI: DLP: Trnscb Date/Time: 12/23/2018 (1530) [email or web address] Orig Print D/T: S: 12/23/2018 (1533) PAGE 2 Signed Report- XR CHEST 1 [id number] 15:25:00 Name: TEMITOPE DELEON Afton : 1960 Age/S: 58 / F [address] Unit #: [id number] Loc: [place] [address] Phys: Robin Rai MD Acct: [id number] Dis Date: Status: ADM IN PHONE #: [phone] Exam Date: 12/23/2018 1416 FAX #: Reason: SOB EXAMS: CPT: [id number] XR CHEST 1 X13168 Fluoro Time: DAP (Gy m2): Air Kerma (mGy): Site ID: [id number] HISTORY: Shortness of breath, chest pain FINDINGS: The lungs are clear and normally expanded. The heart and pulmonary vasculature is normal. Osseous structures are unremarkable. Large retrocardiac hiatal hernia is noted. IMPRESSION: Large retrocardiac hiatal hernia. No acute finding. at 1525 Reported and signed by: Suki Looney M.D. CC: Robin Rai MD PAGE 1 Signed Report Name: TEMITOPE DELEON A[place]on : 1960 Age/S: 58 / F [address] Unit #: [id number] Loc: [place] [address] Phys: Robin Rai MD Acct: [id number] Dis Date: Status: ADM IN PHONE #: [phone] Exam Date: 12/23/2018 1416 FAX #: Reason: SOB EXAMS: CPT: [id number] XR CHEST 1 V 92480 Fluoro Time: DAP (Gy m2): Air Kerma (mGy): (Continued) Technologist: Sonali Tinsley, RT(R)(MR); Roopa Sharma, RT(R) Trnscb Date/Time: 12/23/2018 (6761) [email or web address] Orig Print D/T: S: 12/23/2018 (9377) PAGE 2 Signed ReportTROPONIN-I 2018-12-23 13:56:00 Test [...] yby method. Completed by Nursing: NOGLYCOSYLATED HEMOGLOBIN [id number] 10:22:00 Test Item Value Reference Range Interpretation Comments GLYCOSYLATED HEMOGLOBIN (HA1C) 6.3 % A1C 4.2-6.3 N (test code = GLYHGB) ESTIMATED AVERAGE GLUCOSE (test 134 MG/DLest code = EAG) CBC W/AUTO [id number] 10:14:00 Test Item Value Reference Range Interpretation [...] DIFF REQUIRED NO DIFF/SCN CRITERIA SLIDE R AMBERW (test code = MDIFF) CONSISTA NT WITH AUTO DIFFERENTIAL. RBC [id number] 10:14:00 Test Item Value Reference Range Interpretation Comments PLATELET ESTIMATE ADEQUATE THOUSAND ADEQUATE MANUA L ESTIMATE: (test code = PLTEST) 204,000 - 255,000 PLATELET MORPHOLOGY NORMAL (test code = PLTMORPH) CBC W/AUTO [id number] 10:13:00 Test Item Value Reference Range Interpretation [...] CONSISTA NT WITH AUTO DIFFERENTIAL. CBC W/AUTO [id number] 10:13:00 Test Item Value Reference Range Interpretation [...] MDIFF) CONSISTA NT WITH AUTO DIFFERENTIAL. PROTHROMBIN [id number] 09:32:00 Test Item Value Reference Range Interpretation Comments PT PATIENT (test code = PTP) 12.9 SECONDS 9.3-12.9 N INTERNATIONAL NORMAL RATIO 1.12 INR Unit 0.8-1.2 N (test code = INR) [id number] 09:32:00 Test Item Value Reference Range Interpretation Comments D-DIMER (test code = DDIMER) 1399 ng/mLFEU 215-500 HH COMPREHENSIVE METABOLIC [id number] 09:31:00 Test Item Value Reference Range Interpretation [...] = LDL/HDL) 2.30 Ratio 1.48-3.22 Avg N [id number] 09:31:00 Test Item Value Reference Range Interpretation Comments PHOSPHOROUS (test code = PHOS) 3.7 MG/DL 2.5-4.9 N RULE OUT [place] [id number] 09:31:00 Test Item Value Reference Range Interpretation [...] nume rical results may mukul yby method. [id number] 09:31:00 Test Item Value Reference Range Interpretation Comments MAGNESIUM (test code = MAG) 1.9 MG/DL 1.8-2.4 N THYROID STIMULATING [id number] 09:31:00 Test Item Value Reference Range Interpretation Comments THYROID STIMULATING HORMONE 1.400 mcIU/ML 0.340-4.820 N (test code = TSH) PROTHROMBIN [id number] 09:20:00 Test Item Value Reference Range Interpretation Comments PT PATIENT (test code = PTP) 12.9 SECONDS 9.3-12.9 N INTERNATIONAL NORMAL RATIO 1.12 INR Unit 0.8-1.2 N (test code = INR) [id number] 09:20:00 Test Item Value Reference Range Interpretation Comments D-DIMER (test code = DDIMER) ng/mLFEU 215-500 CBC W/AUTO [id number] 09:19:00 Test Item Value Reference Range Interpretation [...] code = DIFF/SCN CRITERIA MDIFF) COMPREHENSIVE METABOLIC [id number] 09:11:00 Test Item Value Reference Range Interpretation [...] (test code = LDL/HDL) Ratio 1.48-3.22 Avg [id number] 09:11:00 Test Item Value Reference Range Interpretation Comments PHOSPHOROUS (test code = PHOS) MG/DL 2.5-4.9 RULE OUT [place] [id number] 09:11:00 Test Item Value Reference Range Interpretation Comments CREATINE KINASE (CK) (test code = CK) Unit/L 26-192 TROPONIN-I (test code = TROPI) NG/ML 0.000-0.045 [id number] 09:11:00 Test Item Value Reference Range Interpretation Comments MAGNESIUM (test code = MAG) MG/DL 1.8-2.4 THYROID STIMULATING [id number] 09:11:00 Test Item Value Reference Range Interpretation Comments THYROID STIMULATING HORMONE (test mcIU/ML 0.340-4.820 code = TSH) CPK-MB [id number] 09:01:00 Test Item Value Reference Range Interpretation Comments CREATINE KINASE (CK) (test code = 64 Unit/L 26-192 N CK) CKMB (test code = CKMBT) 1.5 NG/ML 0.0-4.9 N RELATIVE % INDEX (test code = REL%) 2.3 % 0.0-2.5 N [id number] 08:04:00 Test Item Value Reference Range Interpretation [...]
[2022-05-18] MEDS ORDERED: LIDOCAINE 1% MPF 5 ML VIAL ONE (10:20)
--- NOTE | 2022-05-18 10:57 | ER ---
Nurse's Notes [facility] Name: Temitope Deleon Age: 61 yrs Sex: Female : 1960 Arrival Date: 05/18/2022 Time: 10:01 Bed 8 Private MD: Diagnosis: Cutaneous abscess of left upper limb;Cellulitis of left upper limb Presentation: 05/18 10:12 Chief complaint: Patient states: Pt reports small abscess to left FA x3 days, possible kb3 insect bite, that as I\T\D'd in this ED 2 days go. Reports the wound is red and swollen this morning. Coronavirus screen: Vaccine status: Patient reports being unvaccinated. Client denies travel out of the [place] in the last 14 days. Ebola Screen: Patient negative for fever greater than or equal to 101.5 degrees Fahrenheit, and additional compatible Ebola Virus Disease symptoms Patient denies exposure to infectious person. Patient denies travel to an Ebola-affected area in the 21 days before illness onset. No symptoms or risks identified at this time. Initial Sepsis Screen: Does the patient meet any 2 criteria? No. Patient's initial sepsis screen is negative. Does the patient have a suspected source of infection? No. Patient's initial sepsis screen is negative. Risk Assessment: Do you want to hurt yourself or someone else? Patient reports no desire to harm self or others. Onset of symptoms was May 15, 2022. 10:12 Method Of Arrival: Ambulatory kb3 10:12 Acuity: BETTINA 3 kb3 Triage Assessment: 10:14 General: Appears in no apparent distress. Behavior is calm, cooperative. Pain: kb3 Complains of pain in dorsal aspect of left forearm Pain does not radiate. Pain currently is 3 out of 10 on a pain scale. Quality of pain is described as burning. Derm: Abscess located on dorsal aspect of left forearm is dime sized, has purulent drainage, is hot to touch, is red, is raised. Musculoskeletal:. Historical: - Allergies: 10:14 Decadron; kb3 - Home Meds: 10:14 pantoprazole Oral [Active]; ropinirole Oral [Active]; kb3 - PMHx: 10:14 Gastroesophageal reflux disease; Hypercholesterolemia; SUPRAVENTRICULAR TACHYCARDIA; kb3 - PSHx: 10:14 Cholecystectomy; Total abdominal hysterectomy; kb3 - Immunization history:: Adult Immunizations up to date, Client reports having NOT received the Covid vaccine. Last tetanus immunization: unknown. - Social history:: Smoking status: Patient denies any tobacco usage or history of. - Family history:: not pertinent. - Hospitalizations: : No recent hospitalization is reported. Screenin:28 Abuse screen: Denies threats or abuse. Nutritional screening: No deficits noted. vg1 Tuberculosis screening: No symptoms or risk factors identified. Fall Risk None identified. Assessment: 10:28 General: Appears in no apparent distress. uncomfortable, Behavior is calm, cooperative. vg1 Pain: Complains of pain in dorsal aspect of left forearm Pain currently is 6 out of 10 on a pain scale. Pain began 05/12/22. Neuro: Level of Consciousness is awake, alert, obeys commands, Oriented to person, place, time, situation. Derm: Skin is red, Wound noted dorsal aspect of left forearm. Musculoskeletal: Circulation, motion, and sensation intact. 11:07 Reassessment: PT DC HOME AMBULATORY. bp Vital Signs: 10:12 BP 117 / 81; Pulse 85; Resp 20; Temp 97; Pulse Ox 98% ; Weight 92.99 kg; Height 5 ft. 4 kb3 in. (162.56 cm); Pain 4/10; 11:07 BP 117 / 81; Pulse 80; Resp 16; Pulse Ox 97% ; bp 10:12 Body Mass Index 35.19 (92.99 kg, 162.56 cm) kb3 ED Course: 10:01 Patient arrived in ED. rg4 10:01 Alphonse Gamez MD is Attending Physician. rn 10:07 Dariela Toribio RN is Primary Nurse. vg1 10:14 Triage completed. kb3 10:18 Arm band placed on right wrist. Patient placed in an exam room, on a stretcher. kb3 10:28 Patient has correct armband on for positive identification. Bed in low position. Call vg1 light in reach. Side rails up X 1. 10:28 Assist provider with I \T\ D: of an abscess on right VENTRAL FOREARM. bp 11:06 Patient did not have IV access during this emergency room visit. bp Administered Medications: 10:43 Drug: Lidocaine (1 %) 1 vials {Note: AT B/S FOR MD.} Volume: 5 ml; Route: Infiltration; bp Medication: 10:28 VIS not applicable for this client. vg1 Outcome: 10:56 Discharge ordered by . rn 11:08 Discharged to home ambulatory. bp 11:08 Condition: good 11:08 Discharge instructions given to patient, Instructed on discharge instructions, follow up and referral plans. medication usage, wound care, Demonstrated understanding of instructions, follow-up care, medications, wound care, Prescriptions given X 1. 11:09 Patient left the ED. bp Signatures: Alphonse Gamez MD MD rn Garcia, Rubi rg4 Tom Huggins RN RN bp Dariela Toribio RN RN vg1 Jordyn Recinos, RN RN kb3 Corrections: (The following items were deleted from the chart) 11:07 10:28 No provider procedures requiring assistance completed. vg1 bp
--- NOTE | 2022-05-18 10:57 | EDPHYS ---
Physician Documentation [facility] Name: Temitope Deleon Age: 61 yrs Sex: Female : 1960 Arrival Date: 05/18/2022 Time: 10:01 Bed 8 Private MD: ED Physician Alphonse Gamez HPI: 05/18 10:16 This 61 yrs old Female presents to ER via Ambulatory with complaints of rn Abscess. 10:16 The patient presents with an abscess of the left arm. Description: The affected area is rn small, localized, erythematous, fluctuant. Onset: The symptoms/episode began/occurred 1 week(s) ago. Possible cause(s): unknown. Associated signs and symptoms: Pertinent positives: erythema, swelling, Pertinent negatives: fever. Modifying factors: the symptoms are alleviated by nothing, the symptoms are aggravated by squeezing the lesion and expressing the contents, touching. Severity of symptoms: At their worst the symptoms were moderate, in the emergency department the symptoms are unchanged. The patient has experienced a previous episode. The patient has been recently seen at the [facility] Emergency Department. Pt reports had incision and drainage here in this ER a few days ago for same abscess, put on abx, now increasing in size and pain. No fever. . Historical: - Allergies: 10:14 Decadron; kb3 - Home Meds: 10:14 pantoprazole Oral [Active]; ropinirole Oral [Active]; kb3 - PMHx: 10:14 Gastroesophageal reflux disease; Hypercholesterolemia; SUPRAVENTRICULAR TACHYCARDIA; kb3 - PSHx: 10:14 Cholecystectomy; Total abdominal hysterectomy; kb3 - Immunization history:: Adult Immunizations up to date, Client reports having NOT received the Covid vaccine. Last tetanus immunization: unknown. - Social history:: Smoking status: Patient denies any tobacco usage or history of. - Family history:: not pertinent. - Hospitalizations: : No recent hospitalization is reported. ROS: 10:16 Constitutional: Negative for fever, chills, and weight loss, MS/Extremity: + left arm rn abscess Skin: + abscess and redness to left arm Exam: 10:16 Constitutional: This is a well developed, well nourished patient who is awake, alert, rn and in no acute distress. Cardiovascular: Regular rate and rhythm. No pulse deficits. MS/ Extremity: Left arm with 2 cm area of fluctuance and surrounding erythema, not draining. No streaking. Vital Signs: 10:12 BP 117 / 81; Pulse 85; Resp 20; Temp 97; Pulse Ox 98% ; Weight 92.99 kg; Height 5 ft. 4 kb3 in. (162.56 cm); Pain 4/10; 11:07 BP 117 / 81; Pulse 80; Resp 16; Pulse Ox 97% ; bp 10:12 Body Mass Index 35.19 (92.99 kg, 162.56 cm) kb3 Procedures: 10:51 I \T\ D: Incision and drainage was performed for an abscess of the left dorsal aspect of rn left forearm Prepped with Betadine, Anesthetized with 3 ml's 1% Lidocaine. Incised with #11 blade. Drained small amount purulent fluid. serosanguinous fluid. Packed with iodoform gauze, Dressing: non-Adherent dressing, the patient tolerated the procedure well. MDM: 10:01 Patient medically screened. rn 10:51 Differential diagnosis: abscess, cellulitis. Data reviewed: vital signs, nurses notes, rn old medical records, and as a result, I will discharge patient. Counseling: I had a detailed discussion with the patient and/or guardian regarding: the historical points, exam findings, and any diagnostic results supporting the discharge/admit diagnosis, the need for outpatient follow up, to return to the emergency department if symptoms worsen or persist or if there are any questions or concerns that arise at home. Special discussion: I discussed with the patient/guardian in detail that at this point there is no indication for admission to the hospital. It is understood, however, that if the symptoms persist or worsen the patient needs to return immediately for re-evaluation. 05/18 10:15 Order name: Incision \T\ Drainage Setup; Complete Time: 10:27 rn Administered Medications: 10:43 Drug: Lidocaine (1 %) 1 vials {Note: AT B/S FOR MD.} Volume: 5 ml; Route: Infiltration; bp Disposition Summary: 05/18/22 10:56 Discharge Ordered Location: Home rn Problem: new rn Symptoms: have improved rn Condition: Stable rn Diagnosis - Cutaneous abscess of left upper limb rn - Cellulitis of left upper limb rn Followup: rn - With: Private Physician - When: As needed - Reason: Recheck today's complaints, Re-evaluation by your physician Discharge Instructions: - Discharge Summary Sheet rn - Skin Abscess rn - Cellulitis, Adult rn - Incision and Drainage, Care After rn Forms: - Medication Reconciliation Form rn - Thank You Letter rn - Antibiotic furniture upholsterer - Prescription Opioid Use rn Prescriptions: - Cephalexin 500 mg Oral Capsule - take 1 capsule by ORAL route every 12 hours for 10 days; 20 capsule; Refills: rn 0, Product Selection Permitted Signatures: Alphonse Gamez MD MD rn Peltier, Brian, RN RN Jordyn Mclaughlin RN RN kb3
[2022-05-18 11:18] VITALS: BP 117/81; TEMP 97
[2022-05-18 11:19] VITALS: O2SAT 97
== END 2022-05-18 11:09 | disposition home or self-care (01) ==
LOC: ER 09:58
PROC: 0H9EXZZ Drainage of Left Lower Arm Skin, External Approach (ICD-10-PCS; principal; 2022-05-18)
DX: L02.414 Cutaneous abscess of left upper limb (principal); L03.114 Cellulitis of left upper limb
CPT/HCPCS: 99283; 10060; J2001